=== PATIENT | female | born 1955 | race African-American/Black ===

== ENCOUNTER 2017-08-10 18:41 | Inpatient (IN) ==
[2017-08-10 20:13] LABS: VBG Base Excess 1.9 MEQ/L (0-4); VBG HCO3 25.7 MEQ/L (24-28); VBG PH 7.351; VBG PO2 52.7 MMHG (17-40)
[2017-08-10 20:25] LABS: Basophils # 0.1 10*3/uL (0.0-0.2); Basophils % 0.8 % (0.0-0.8); Eosinophils # 0.3 10*3/uL (0.0-0.87); Eosinophils % 2.7 % (0.00-10.9); Hematocrit 45.3 VOL% (35.7-47.0); Hemoglobin 14.2 GM/DL (12.0-16.0); Immature Granulocytes % 0.4 %; Immature Granulocytes Absolute 0.04 #; Lymphocytes # 3.3 10*3/uL (1.4-4.0); Lymphocytes % 35.3 % (21.3-54.2); Mean Corpuscular HGB Conc 31.3 GM/DL (32-36); Mean Corpuscular Hemoglobin 26 PG (27-34); Mean Corpuscular Volume 83.9 FL (87-102); Mean Platelet Volume 10.1 FL (9.6-12.0); Monocytes # 0.7 10*3/uL (0.11-0.8); Monocytes % 7.3 % (1.7-12.7); Neutrophils # 4.9 10*3/uL (1.4-7.4); Neutrophils % 53.5 % (38.7-73.9); Platelet Count 343 T/CUMM (130-400); Red Cell Distribution Width 16.1 % (9.3-17.3); White Blood Count 9.2 T/CUMM (4-12)
[2017-08-10 20:41] LABS: Alanine Aminotransferase 27 U/L (13-56); Albumin 3.6 G/DL (3.4-5.0); Alkaline Phosphatase 108 U/L (45-117); Aspartate Amino Transferase 33 U/L (0-37); Blood Urea Nitrogen 16 MG/DL (7-18); Calcium 9.7 MG/DL (8.5-10.1); Glucose 114 MG/DL (74-106); Osmolality,Calculated 271.1 MOS/KG (273-304); Potassium 4.9 MMOL/L (3.5-5.1); Sodium 135 MMOL/L (136-145); Total Protein 8.2 G/DL (6.4-8.3); Troponin I Only < 0.015 NG/ML (0.00-0.045)
[2017-08-10] MEDS ORDERED: ALBUTEROL/IPRATROPIUM 3 ML NEB RESP TX STA (21:11)
[2017-08-10] MEDS ORDERED: DILTIAZEM 100 MG VIAL.ADD IV ONE (22:12)
[2017-08-10] MEDS ORDERED: SODIUM CHLORIDE 0.9% 100 ML IV ONE (22:12)
[2017-08-10] MEDS ORDERED: ALBUTEROL/IPRATROPIUM 3 ML NEB RESP TX SCH (22:30)
[2017-08-10] MEDS ORDERED: ENOXAPARIN 100 MG/ML SYRINGE SUBCUT ONE (22:34)
[2017-08-10] MEDS: ENOXAPARIN 100 MG/ML SYRINGE SUBCUT SCH (22:39)
[2017-08-11] MEDS: PREGABALIN 100 MG CAPSULE PO SCH ×5 (00:57→21:41)
[2017-08-11] MEDS: ZALEPLON 5 MG CAPSULE PO SCH ×2 (00:58→21:41)
[2017-08-11] MEDS: CETIRIZINE 10 MG TABLET PO SCH ×2 (00:59→21:41)
[2017-08-11] MEDS: ALBUTEROL/IPRATROPIUM 3 ML NEB RESP TX SCH ×4 (01:53→20:39)
[2017-08-11] MEDS: CARVEDILOL 3.125 MG TABLET PO SCH ×2 (08:33→21:41)
[2017-08-11] MEDS: ASPIRIN EC 81 MG TABLET PO SCH (08:34)
[2017-08-11] MEDS: ESCITALOPRAM 10 MG TABLET PO SCH (08:34)
[2017-08-11] MEDS: DOCUSATE SODIUM 100 MG CAPSULE PO SCH (08:34)
[2017-08-11] MEDS ORDERED: PNEUMOCOCCAL VACCINE (23 VALENT) 0.5 ML VIAL IM ONE (09:00)
[2017-08-11] MEDS ORDERED: LEVOFLOXACIN INJ 750 MG in PREMIX 1 EACH IV SCH (15:00)
[2017-08-11] MEDS: methylPREDNISolone SOD SUC 40 MG/1 ML VIAL IV SCH (15:06)
[2017-08-11] MEDS ORDERED: ZALEPLON 5 MG CAPSULE PO SCH (21:00)
[2017-08-11] MEDS ORDERED: CETIRIZINE 10 MG TABLET PO SCH (21:00)
[2017-08-11] MEDS: ATORVASTATIN 40 MG TABLET PO SCH (21:41)
[2017-08-11] MEDS: ENOXAPARIN 100 MG/ML SYRINGE SUBCUT SCH (21:41)
[2017-08-12] MEDS: ALBUTEROL/IPRATROPIUM 3 ML NEB RESP TX SCH ×3 (00:21→19:16)
[2017-08-12] MEDS: methylPREDNISolone SOD SUC 40 MG/1 ML VIAL IV SCH (03:26)
[2017-08-12 05:16] LABS: Basophils # 0.1 10*3/uL (0.0-0.2); Basophils % 0.5 % (0.0-0.8); Eosinophils % 0.2 % (0.00-10.9); Hematocrit 43.6 VOL% (35.7-47.0); Hemoglobin 13.8 GM/DL (12.0-16.0); Immature Granulocytes % 3.3 %; Immature Granulocytes Absolute 0.37 #; Lymphocytes % 8.7 % (21.3-54.2); Mean Corpuscular HGB Conc 31.7 GM/DL (32-36); Mean Corpuscular Hemoglobin 27 PG (27-34); Mean Corpuscular Volume 84.8 FL (87-102); Mean Platelet Volume 10.2 FL (9.6-12.0); Monocytes # 0.5 10*3/uL (0.11-0.8); Monocytes % 4.3 % (1.7-12.7); NRBC # 0.03 10*3/uL; Neutrophils # 9.3 10*3/uL (1.4-7.4); Platelet Count 277 T/CUMM (130-400); Red Blood Count 5.14 MC/CUMM (3.8-5.5); Red Cell Distribution Width 15.9 % (9.3-17.3); White Blood Count 11.2 T/CUMM (4-12)
[2017-08-12 05:44] LABS: Calcium 8.7 MG/DL (8.5-10.1); Osmolality,Calculated 270.4 MOS/KG (273-304)
[2017-08-12] MEDS ORDERED: SODIUM POLYSTYRENE SULFATE 15 GM/60 ML BOTTLE PO ONE (06:34)
[2017-08-12] MEDS ORDERED: LIDOCAINE 1% 20 ML VIAL MISC INJ ONE (09:00)
[2017-08-12] MEDS: DOCUSATE SODIUM 100 MG CAPSULE PO SCH (09:24)
[2017-08-12] MEDS: CARVEDILOL 3.125 MG TABLET PO SCH ×2 (09:24→21:51)
[2017-08-12] MEDS: ASPIRIN EC 81 MG TABLET PO SCH (09:25)
[2017-08-12] MEDS: LEVOFLOXACIN 500 MG TABLET PO SCH (09:25)
[2017-08-12] MEDS: PREGABALIN 100 MG CAPSULE PO SCH ×3 (09:25→21:51)
[2017-08-12] MEDS: ESCITALOPRAM 10 MG TABLET PO SCH (09:25)
[2017-08-12] MEDS: predniSONE 20 MG TABLET PO SCH (09:25)
[2017-08-12 11:20] LABS: Calcium 8.6 MG/DL (8.5-10.1); Osmolality,Calculated 268.7 MOS/KG (273-304)
[2017-08-12 16:02] LABS: ABG Base Excess 4.4 MMOL/L (-2.5-2.5); ABG HCO3 32.6 MMOL/L (20-26); ABG Oxygen Saturation 93.7 % (95-100); ABG PCO2 65.5 MM HG (35-48); ABG PH 7.315 (7.35-7.45); ABG PO2 69.3 MM HG (80-95); ABG TCO2 34.6 MMOL/L (23-27); Allen Test Positive; Pt O2 Delivery Device Other
[2017-08-12] MEDS ORDERED: ENOXAPARIN 40 MG/0.4 ML SYRINGE SUBCUT SCH (21:00)
[2017-08-12] MEDS: ZALEPLON 5 MG CAPSULE PO SCH (21:51)
[2017-08-12] MEDS: ATORVASTATIN 40 MG TABLET PO SCH (21:51)
[2017-08-12] MEDS: CETIRIZINE 10 MG TABLET PO SCH (21:51)
[2017-08-12] MEDS: ENOXAPARIN 80 MG/0.8 ML SYRINGE SUBCUT SCH (21:51)
[2017-08-13] MEDS: ALBUTEROL/IPRATROPIUM 3 ML NEB RESP TX SCH ×6 (00:18→19:57)
[2017-08-13] MEDS: ESCITALOPRAM 10 MG TABLET PO SCH (09:01)
[2017-08-13] MEDS: FLUCONAZOLE 200 MG TABLET PO SCH (09:01)
[2017-08-13] MEDS: CARVEDILOL 3.125 MG TABLET PO SCH ×2 (09:01→21:32)
[2017-08-13] MEDS: predniSONE 20 MG TABLET PO SCH (09:01)
[2017-08-13] MEDS: LEVOFLOXACIN 500 MG TABLET PO SCH (09:01)
[2017-08-13] MEDS: DOCUSATE SODIUM 100 MG CAPSULE PO SCH (09:01)
[2017-08-13] MEDS: ASPIRIN EC 81 MG TABLET PO SCH (09:02)
[2017-08-13] MEDS: PREGABALIN 100 MG CAPSULE PO SCH ×3 (09:02→21:33)
[2017-08-13] MEDS: ZALEPLON 5 MG CAPSULE PO SCH (21:33)
[2017-08-13] MEDS: CETIRIZINE 10 MG TABLET PO SCH (21:33)
[2017-08-13] MEDS: ENOXAPARIN 80 MG/0.8 ML SYRINGE SUBCUT SCH (21:33)
[2017-08-13] MEDS: ATORVASTATIN 40 MG TABLET PO SCH (21:33)
[2017-08-14] MEDS: ALBUTEROL/IPRATROPIUM 3 ML NEB RESP TX SCH ×4 (01:13→21:02)
[2017-08-14 05:15] LABS: Basophils # 0.1 10*3/uL (0.0-0.2); Basophils % 0.6 % (0.0-0.8); Eosinophils # 0.3 10*3/uL (0.0-0.87); Eosinophils % 3.9 % (0.00-10.9); Hematocrit 42.1 VOL% (35.7-47.0); Hemoglobin 13.5 GM/DL (12.0-16.0); Immature Granulocytes % 0.6 %; Immature Granulocytes Absolute 0.05 #; Lymphocytes # 1.9 10*3/uL (1.4-4.0); Lymphocytes % 21.9 % (21.3-54.2); Mean Corpuscular HGB Conc 32.1 GM/DL (32-36); Mean Corpuscular Hemoglobin 26 PG (27-34); Mean Corpuscular Volume 82.4 FL (87-102); Mean Platelet Volume 10.5 FL (9.6-12.0); Neutrophils # 5.4 10*3/uL (1.4-7.4); Platelet Count 271 T/CUMM (130-400); Red Blood Count 5.11 MC/CUMM (3.8-5.5); Red Cell Distribution Width 15.8 % (9.3-17.3); White Blood Count 8.8 T/CUMM (4-12)
[2017-08-14 05:39] LABS: Calcium 8.8 MG/DL (8.5-10.1); Potassium 4.1 MMOL/L (3.5-5.1)
[2017-08-14] MEDS: ASPIRIN EC 81 MG TABLET PO SCH (09:16)
[2017-08-14] MEDS: PREGABALIN 100 MG CAPSULE PO SCH ×3 (09:16→22:24)
[2017-08-14] MEDS: predniSONE 20 MG TABLET PO SCH (09:16)
[2017-08-14] MEDS: LEVOFLOXACIN 500 MG TABLET PO SCH (09:16)
[2017-08-14] MEDS: DOCUSATE SODIUM 100 MG CAPSULE PO SCH (09:16)
[2017-08-14] MEDS: ESCITALOPRAM 10 MG TABLET PO SCH (09:17)
[2017-08-14] MEDS: FLUCONAZOLE 200 MG TABLET PO SCH (09:17)
[2017-08-14] MEDS: CARVEDILOL 3.125 MG TABLET PO SCH ×2 (09:17→22:25)
[2017-08-14] MEDS: ATORVASTATIN 40 MG TABLET PO SCH (22:24)
[2017-08-14] MEDS: CETIRIZINE 10 MG TABLET PO SCH (22:24)
[2017-08-14] MEDS: ENOXAPARIN 80 MG/0.8 ML SYRINGE SUBCUT SCH (22:25)
[2017-08-14] MEDS: ZALEPLON 5 MG CAPSULE PO SCH (22:45)
[2017-08-15] MEDS: ALBUTEROL/IPRATROPIUM 3 ML NEB RESP TX SCH ×4 (02:11→19:41)
[2017-08-15] MEDS: CARVEDILOL 3.125 MG TABLET PO SCH ×2 (09:13→20:55)
[2017-08-15] MEDS: DOCUSATE SODIUM 100 MG CAPSULE PO SCH (09:13)
[2017-08-15] MEDS: ASPIRIN EC 81 MG TABLET PO SCH (09:13)
[2017-08-15] MEDS: FLUCONAZOLE 200 MG TABLET PO SCH (09:13)
[2017-08-15] MEDS: predniSONE 20 MG TABLET PO SCH (09:13)
[2017-08-15] MEDS: ESCITALOPRAM 10 MG TABLET PO SCH (09:13)
[2017-08-15] MEDS: PREGABALIN 100 MG CAPSULE PO SCH ×3 (09:13→20:51)
[2017-08-15] MEDS: CLARITHROMYCIN 500 MG TABLET PO SCH ×2 (09:13→20:52)
[2017-08-15] MEDS: diphenhydrAMINE CAP 25 MG CAPSULE PO PRN ×2 (13:34→20:51)
[2017-08-15] MEDS: ATORVASTATIN 40 MG TABLET PO SCH (20:51)
[2017-08-15] MEDS: CETIRIZINE 10 MG TABLET PO SCH (20:52)
[2017-08-15] MEDS: ENOXAPARIN 80 MG/0.8 ML SYRINGE SUBCUT SCH (20:55)
[2017-08-15] MEDS: ZALEPLON 5 MG CAPSULE PO SCH (22:16)
[2017-08-16] MEDS: ALBUTEROL/IPRATROPIUM 3 ML NEB RESP TX SCH ×4 (01:18→19:18)
[2017-08-16] MEDS: FLUCONAZOLE 200 MG TABLET PO SCH (09:12)
[2017-08-16] MEDS: ESCITALOPRAM 10 MG TABLET PO SCH (09:12)
[2017-08-16] MEDS: DOCUSATE SODIUM 100 MG CAPSULE PO SCH (09:13)
[2017-08-16] MEDS: CLARITHROMYCIN 500 MG TABLET PO SCH ×2 (09:13→21:48)
[2017-08-16] MEDS: PREGABALIN 100 MG CAPSULE PO SCH ×3 (09:15→21:48)
[2017-08-16] MEDS: diphenhydrAMINE CAP 25 MG CAPSULE PO PRN (09:15)
[2017-08-16] MEDS: ASPIRIN EC 81 MG TABLET PO SCH (09:15)
[2017-08-16] MEDS: CARVEDILOL 3.125 MG TABLET PO SCH ×2 (09:15→21:48)
[2017-08-16] MEDS: predniSONE 20 MG TABLET PO SCH (09:16)
[2017-08-16] MEDS ORDERED: methylPREDNISolone SOD SUC 125 MG/2 ML VIAL IV ONE (10:17)
[2017-08-16] MEDS: HydrOXYzine PAMOATE 50 MG CAPSULE PO PRN ×2 (12:14→22:04)
[2017-08-16] MEDS: ENOXAPARIN 80 MG/0.8 ML SYRINGE SUBCUT SCH (21:48)
[2017-08-16] MEDS: ATORVASTATIN 40 MG TABLET PO SCH (21:48)
[2017-08-16] MEDS: CETIRIZINE 10 MG TABLET PO SCH (21:48)
[2017-08-16] MEDS: ZALEPLON 5 MG CAPSULE PO SCH ×2 (21:48→22:05)
[2017-08-17] MEDS: ALBUTEROL/IPRATROPIUM 3 ML NEB RESP TX SCH ×2 (00:35→06:57)
[2017-08-17] MEDS: FLUCONAZOLE 200 MG TABLET PO SCH (10:27)
[2017-08-17] MEDS: CLARITHROMYCIN 500 MG TABLET PO SCH (10:27)
[2017-08-17] MEDS: DOCUSATE SODIUM 100 MG CAPSULE PO SCH (10:27)
[2017-08-17] MEDS: CARVEDILOL 3.125 MG TABLET PO SCH (10:28)
[2017-08-17] MEDS: predniSONE 20 MG TABLET PO SCH (10:28)
[2017-08-17] MEDS: ESCITALOPRAM 10 MG TABLET PO SCH (10:28)
[2017-08-17] MEDS: ASPIRIN EC 81 MG TABLET PO SCH (10:28)
[2017-08-17] MEDS: PREGABALIN 100 MG CAPSULE PO SCH (10:28)
[2017-08-17 12:20] VITALS: BP 142/64
== END 2017-08-17 12:35 | disposition home health service (06) | DRG 189 ==
LOC: EDUNIT# → EDBD → N.ED 18:41 → N.EDINP 21:38 → SUATTDRO 21:38 → N.TELEN 22:16 → N.CC 08-12 15:15 → N.5E 08-14 12:56
PROVIDERS: ADMIT Internal Medicine; ATTEND Family Medicine

== ENCOUNTER 2020-09-21 19:01 | Inpatient (IN) ==
[2020-09-21 20:09] LABS: Basophils # 0.1 10*3/uL (0.0-0.2); Basophils % 0.5 % (0.0-0.8); Eosinophils # 0.8 10*3/uL (0.0-0.87); Eosinophils % 6.8 % (0.00-10.9); Hematocrit 28.4 VOL% (35.7-47.0); Hemoglobin 8.2 GM/DL (12.0-16.0); Immature Granulocytes % 0.9 %; Immature Granulocytes Absolute 0.11 #; Lymphocytes # 2.7 10*3/uL (1.4-4.0); Lymphocytes % 22.9 % (21.3-54.2); Mean Corpuscular HGB Conc 28.9 GM/DL (32-36); Mean Platelet Volume 9.9 FL (9.6-12.0); Monocytes % 8.9 % (1.7-12.7); NRBC # 0.02 10*3/uL; Platelet Count 416 T/CUMM (130-400); Red Blood Count 3.38 MC/CUMM (3.8-5.5); White Blood Count 11.8 T/CUMM (4-12)
[2020-09-21 20:25] LABS: PT Patient Result 11.5 SECS (9.8-11.9); Partial Thromboplastin Time 24.8 SECS (23.9-33.8)
[2020-09-21 20:38] LABS: Alanine Aminotransferase 12 U/L (13-56); Albumin 3.4 G/DL (3.4-5.0); Alkaline Phosphatase 102 U/L (45-117); Aspartate Amino Transferase 21 U/L (0-37); Bilirubin,Total < 0.39 MG/DL (0.2-1.0); Blood Urea Nitrogen 23 MG/DL (7-18); Calcium 9.5 MG/DL (8.5-10.1); Carbon Dioxide 29 MMOL/L (21-32); Estimated Glom Filtration Rate 56 ML/MIN; Glucose 67 MG/DL (74-106); Osmolality,Calculated 276.7 MOS/KG (273-304); Potassium 4.6 MMOL/L (3.5-5.1); Sodium 138 MMOL/L (136-145); Total Protein 8.4 G/DL (6.4-8.2)
[2020-09-21 20:39] LABS: Troponin I < 0.015 NG/ML (0.00-0.045)
[2020-09-21 21:05] LABS: Anisocytosis 2+; Hypochromasia 1+; Microcytosis 1+; Polychromasia Few
[2020-09-21 21:06] LABS: Platelet Estimate Adequate
[2020-09-21] MEDS ORDERED: ENOXAPARIN 100 MG/ML SYRINGE SUBCUT STA (22:00)
[2020-09-21] MEDS ORDERED: guaiFENesin/DM ER 600-30 MG TABLET PO PRN (23:41)
[2020-09-21] MEDS ORDERED: DOCUSATE SODIUM 100 MG CAPSULE PO PRN (23:41)
[2020-09-21] MEDS ORDERED: ZALEPLON 5 MG CAPSULE PO PRN (23:41)
[2020-09-21] MEDS ORDERED: DEXTROSE 50% 25 GM/50 ML VIAL IV PRN (23:41)
[2020-09-21] MEDS ORDERED: diphenhydrAMINE CAP 25 MG CAPSULE PO PRN (23:41)
[2020-09-21] MEDS ORDERED: GLUCAGON 1 MG VIAL IM PRN (23:41)
[2020-09-21] MEDS ORDERED: hydrALAZINE 20 MG/1 ML VIAL IV PRN (23:41)
[2020-09-21] MEDS ORDERED: MORPHINE 4 MG/1 ML VIAL IV PRN (23:41)
[2020-09-21] MEDS ORDERED: ONDANSETRON 4 MG/2 ML VIAL IV PRN (23:41)
[2020-09-21] MEDS ORDERED: ACETAMINOPHEN 325 MG TABLET PO PRN (23:41)
[2020-09-21] MEDS ORDERED: NICOTINE 21 MG/24 HR PATCH TRANSDERM PRN (23:41)
[2020-09-22] MEDS ORDERED: cefTRIAXone 1,000 MG in SODIUM CHLORIDE 0.9% 100 ML IV SCH
[2020-09-22] MEDS: ALBUTEROL/IPRATROPIUM 3 ML NEB RESP TX SCH ×4 (00:20→19:52)
[2020-09-22] MEDS ORDERED: AZITHROMYCIN INJ 500 MG in SODIUM CHLORIDE 0.9% 250 ML IV SCH (01:00)
[2020-09-22] MEDS ORDERED: ENOXAPARIN 80 MG/0.8 ML SYRINGE SUBCUT ONE (02:00)
[2020-09-22 06:56] LABS: Basophils # 0.1 10*3/uL (0.0-0.2); Basophils % 0.4 % (0.0-0.8); Eosinophils # 0.9 10*3/uL (0.0-0.87); Eosinophils % 7.2 % (0.00-10.9); Hematocrit 24.3 VOL% (35.7-47.0); Immature Granulocytes % 0.5 %; Immature Granulocytes Absolute 0.06 #; Lymphocytes # 2.3 10*3/uL (1.4-4.0); Lymphocytes % 19.5 % (21.3-54.2); Mean Corpuscular HGB Conc 28.8 GM/DL (32-36); Mean Corpuscular Volume 85.3 FL (87-102); Mean Platelet Volume 10.2 FL (9.6-12.0); Monocytes % 8.5 % (1.7-12.7); NRBC # 0.02 10*3/uL; Neutrophils % 63.9 % (38.7-73.9); Platelet Count 328 T/CUMM (130-400); Red Blood Count 2.85 MC/CUMM (3.8-5.5); Red Cell Distribution Width 16.6 % (9.3-17.3); White Blood Count 11.9 T/CUMM (4-12)
[2020-09-22 07:26] LABS: Calcium 8.5 MG/DL (8.5-10.1); Osmolality,Calculated 285.3 MOS/KG (273-304); Potassium 4.2 MMOL/L (3.5-5.1)
[2020-09-22] MEDS: FUROSEMIDE 40 MG/4 ML VIAL IV SCH ×2 (09:49→17:06)
[2020-09-22] MEDS: PANTOPRAZOLE 40 MG TABLET PO SCH (09:50)
[2020-09-22] MEDS ORDERED: HydrOXYzine PAMOATE 50 MG CAPSULE PO PRN (16:52)
[2020-09-22] MEDS: MONTELUKAST 10 MG TABLET PO SCH (17:06)
[2020-09-22] MEDS: ESCITALOPRAM 10 MG TABLET PO SCH (17:06)
[2020-09-22] MEDS: CELECOXIB 200 MG CAPSULE PO SCH (17:06)
[2020-09-22] MEDS ORDERED: ENOXAPARIN 80 MG/0.8 ML SYRINGE SUBCUT SCH (21:00)
[2020-09-22] MEDS ORDERED: ENOXAPARIN 100 MG/ML SYRINGE SUBCUT SCH (21:00)
[2020-09-22] MEDS: ATORVASTATIN 40 MG TABLET PO SCH (22:35)
[2020-09-22] MEDS: PREGABALIN 100 MG CAPSULE PO SCH (22:35)
[2020-09-22] MEDS: MELATONIN 3 MG TABLET PO SCH (22:35)
[2020-09-22] MEDS: carvediloL 3.125 MG TABLET PO SCH (23:00)
[2020-09-23] MEDS: ALBUTEROL/IPRATROPIUM 3 ML NEB RESP TX SCH ×4 (00:11→19:39)
[2020-09-23 06:51] LABS: Basophils % 0.3 % (0.0-0.8); Eosinophils # 0.8 10*3/uL (0.0-0.87); Hematocrit 22.8 VOL% (35.7-47.0); Hemoglobin 6.5 GM/DL (12.0-16.0); Immature Granulocytes % 0.5 %; Immature Granulocytes Absolute 0.07 #; Lymphocytes # 1.7 10*3/uL (1.4-4.0); Lymphocytes % 12.7 % (21.3-54.2); Mean Corpuscular HGB Conc 28.5 GM/DL (32-36); Mean Corpuscular Volume 84.4 FL (87-102); Mean Platelet Volume 9.6 FL (9.6-12.0); Monocytes % 8.4 % (1.7-12.7); Neutrophils % 72.1 % (38.7-73.9); Platelet Count 353 T/CUMM (130-400); Red Cell Distribution Width 16.3 % (9.3-17.3); White Blood Count 13.4 T/CUMM (4-12)
[2020-09-23 07:13] LABS: Calcium 8.6 MG/DL (8.5-10.1); Osmolality,Calculated 281.4 MOS/KG (273-304); Platelet Estimate Normal
[2020-09-23 07:14] LABS: Anisocytosis 1+; Basophilic Stippling Slight; Hypochromasia 1+
[2020-09-23] MEDS: MONTELUKAST 10 MG TABLET PO SCH (09:23)
[2020-09-23] MEDS: FUROSEMIDE 40 MG/4 ML VIAL IV SCH ×2 (09:23→18:15)
[2020-09-23] MEDS: carvediloL 3.125 MG TABLET PO SCH ×2 (09:23→21:38)
[2020-09-23] MEDS: PANTOPRAZOLE 40 MG TABLET PO SCH (09:23)
[2020-09-23] MEDS: PREGABALIN 100 MG CAPSULE PO SCH ×3 (09:23→21:38)
[2020-09-23] MEDS: ESCITALOPRAM 10 MG TABLET PO SCH (09:23)
[2020-09-23] MEDS: ASPIRIN EC 81 MG TABLET PO SCH (09:23)
[2020-09-23] MEDS: CELECOXIB 200 MG CAPSULE PO SCH (09:24)
[2020-09-23] MEDS ORDERED: SODIUM CHLORIDE 0.9% 1,000 ML IV PRN (12:31)
[2020-09-23] MEDS ORDERED: BUTALBITAL/ACETAMIN/CAFFEINE 50-325-40 MG TABLET PO PRN (14:20)
[2020-09-23] MEDS: MELATONIN 3 MG TABLET PO SCH (21:38)
[2020-09-23] MEDS: ATORVASTATIN 40 MG TABLET PO SCH (21:38)
[2020-09-24] MEDS: ALBUTEROL/IPRATROPIUM 3 ML NEB RESP TX SCH ×4 (01:26→19:55)
[2020-09-24] MEDS: CELECOXIB 200 MG CAPSULE PO SCH (10:23)
[2020-09-24] MEDS: ASPIRIN EC 81 MG TABLET PO SCH (10:23)
[2020-09-24] MEDS: ESCITALOPRAM 10 MG TABLET PO SCH (10:24)
[2020-09-24] MEDS: PANTOPRAZOLE 40 MG TABLET PO SCH (10:24)
[2020-09-24] MEDS: PREGABALIN 100 MG CAPSULE PO SCH ×3 (10:24→21:01)
[2020-09-24] MEDS: MONTELUKAST 10 MG TABLET PO SCH (10:24)
[2020-09-24] MEDS: carvediloL 3.125 MG TABLET PO SCH ×2 (10:24→21:01)
[2020-09-24] MEDS: FUROSEMIDE 40 MG/4 ML VIAL IV SCH ×2 (10:25→16:46)
[2020-09-24 11:12] LABS: Basophils % 0.4 % (0.0-0.8); Eosinophils # 0.9 10*3/uL (0.0-0.87); Eosinophils % 7.7 % (0.00-10.9); Hemoglobin 7.8 GM/DL (12.0-16.0); Immature Granulocytes % 0.6 %; Immature Granulocytes Absolute 0.07 #; Lymphocytes # 1.7 10*3/uL (1.4-4.0); Lymphocytes % 15.5 % (21.3-54.2); Mean Corpuscular HGB Conc 28.9 GM/DL (32-36); Mean Corpuscular Volume 84.6 FL (87-102); Mean Platelet Volume 9.7 FL (9.6-12.0); Monocytes % 9.9 % (1.7-12.7); Neutrophils % 65.9 % (38.7-73.9); Platelet Count 366 T/CUMM (130-400); Red Blood Count 3.19 MC/CUMM (3.8-5.5); Red Cell Distribution Width 15.9 % (9.3-17.3); White Blood Count 11.1 T/CUMM (4-12)
[2020-09-24] MEDS: MELATONIN 3 MG TABLET PO SCH (21:01)
[2020-09-24] MEDS: ATORVASTATIN 40 MG TABLET PO SCH (21:01)
[2020-09-25] MEDS: ALBUTEROL/IPRATROPIUM 3 ML NEB RESP TX SCH ×5 (00:50→22:48)
[2020-09-25 08:42] LABS: Basophils % 0.3 % (0.0-0.8); Eosinophils # 0.5 10*3/uL (0.0-0.87); Eosinophils % 4.3 % (0.00-10.9); Hematocrit 29.3 VOL% (35.7-47.0); Immature Granulocytes % 0.8 %; Lymphocytes # 1.7 10*3/uL (1.4-4.0); Lymphocytes % 13.8 % (21.3-54.2); Mean Corpuscular Volume 84.9 FL (87-102); Mean Platelet Volume 9.6 FL (9.6-12.0); Monocytes % 8.4 % (1.7-12.7); Neutrophils % 72.4 % (38.7-73.9); Platelet Count 410 T/CUMM (130-400); Red Blood Count 3.45 MC/CUMM (3.8-5.5); Red Cell Distribution Width 15.9 % (9.3-17.3); White Blood Count 12.2 T/CUMM (4-12)
[2020-09-25 08:43] LABS: Hemoglobin 8.5 GM/DL (12.0-16.0)
[2020-09-25] MEDS: ASPIRIN EC 81 MG TABLET PO SCH (09:20)
[2020-09-25] MEDS: PANTOPRAZOLE 40 MG TABLET PO SCH (09:20)
[2020-09-25] MEDS: FUROSEMIDE 40 MG/4 ML VIAL IV SCH ×2 (09:20→18:37)
[2020-09-25] MEDS: carvediloL 3.125 MG TABLET PO SCH ×2 (09:20→22:52)
[2020-09-25] MEDS: ESCITALOPRAM 10 MG TABLET PO SCH (09:21)
[2020-09-25] MEDS: PREGABALIN 100 MG CAPSULE PO SCH ×3 (09:22→22:52)
[2020-09-25] MEDS: CELECOXIB 200 MG CAPSULE PO SCH (09:22)
[2020-09-25] MEDS: MONTELUKAST 10 MG TABLET PO SCH (09:23)
[2020-09-25] MEDS ORDERED: KETOROLAC 30 MG/1 ML VIAL IV ONE (09:49)
[2020-09-25] MEDS: CLORAZEPATE 3.75 MG TABLET PO PRN (18:10)
[2020-09-25 19:57] LABS: ABG Base Excess 3.2 MMOL/L (-2.5-2.5); ABG HCO3 27.3 MMOL/L (20-26); ABG Oxygen Saturation 99.4 % (95-100); ABG TCO2 34.3 MMOL/L (23-27)
[2020-09-25 19:59] LABS: ABG PH 7.125 (7.35-7.45)
[2020-09-25 20:34] LABS: Calcium 9.1 MG/DL (8.5-10.1); Osmolality,Calculated 280.8 MOS/KG (273-304); Potassium 4.4 MMOL/L (3.5-5.1)
[2020-09-25 20:41] LABS: ABG Oxygen Saturation 99.3 % (95-100); ABG PH 7.364 (7.35-7.45); ABG TCO2 29.3 MMOL/L (23-27)
[2020-09-25] MEDS ORDERED: NOREPINEPHRINE 4 MG/4 ML VIAL IV ONE (20:48)
[2020-09-25] MEDS ORDERED: NOREPINEPHRINE 8 MG in SODIUM CHLORIDE 0.9% 242 ML IV PRN (21:28)
[2020-09-25] MEDS ORDERED: SODIUM CHLORIDE 0.9% 500 ML IV ONE (21:28)
[2020-09-25] MEDS: ATORVASTATIN 40 MG TABLET PO SCH (22:52)
[2020-09-25] MEDS: MELATONIN 3 MG TABLET PO SCH (22:53)
[2020-09-26] MEDS: ALBUTEROL/IPRATROPIUM 3 ML NEB RESP TX SCH ×4 (00:49→19:39)
[2020-09-26] MEDS: SODIUM CHLORIDE 0.9% 1,000 ML IV SCH ×3 (03:45→22:58)
[2020-09-26 03:53] LABS: ABG Base Excess 4.7 MMOL/L (-2.5-2.5); ABG HCO3 28.7 MMOL/L (20-26); ABG Oxygen Saturation 99.8 % (95-100); ABG PCO2 52.2 MM HG (35-48); ABG PH 7.378 (7.35-7.45); ABG TCO2 28.6 MMOL/L (23-27); Allen Test Positive; Pt O2 Delivery Device Ventilator
[2020-09-26 07:36] LABS: Basophils # 0.1 10*3/uL (0.0-0.2); Basophils % 0.5 % (0.0-0.8); Eosinophils # 0.5 10*3/uL (0.0-0.87); Eosinophils % 4.6 % (0.00-10.9); Hematocrit 26.2 VOL% (35.7-47.0); Hemoglobin 7.7 GM/DL (12.0-16.0); Immature Granulocytes % 0.7 %; Immature Granulocytes Absolute 0.07 #; Lymphocytes # 1.5 10*3/uL (1.4-4.0); Lymphocytes % 13.9 % (21.3-54.2); Mean Corpuscular HGB Conc 29.4 GM/DL (32-36); Mean Corpuscular Volume 82.1 FL (87-102); Mean Platelet Volume 9.5 FL (9.6-12.0); Monocytes % 8.3 % (1.7-12.7); Platelet Count 382 T/CUMM (130-400); Red Blood Count 3.19 MC/CUMM (3.8-5.5); Red Cell Distribution Width 15.7 % (9.3-17.3); White Blood Count 10.4 T/CUMM (4-12)
[2020-09-26 08:02] LABS: Calcium 8.7 MG/DL (8.5-10.1); Potassium 4.2 MMOL/L (3.5-5.1)
[2020-09-26] MEDS: FUROSEMIDE 40 MG/4 ML VIAL IV SCH ×2 (08:45→16:34)
[2020-09-26] MEDS: PREGABALIN 100 MG CAPSULE PO SCH ×3 (09:40→21:50)
[2020-09-26] MEDS: ASPIRIN CHEW 81 MG TABLET PO SCH (09:41)
[2020-09-26] MEDS: carvediloL 3.125 MG TABLET PO SCH ×2 (09:41→21:49)
[2020-09-26] MEDS: MONTELUKAST 10 MG TABLET PO SCH (09:41)
[2020-09-26] MEDS: CELECOXIB 200 MG CAPSULE PO SCH (09:41)
[2020-09-26] MEDS: ESCITALOPRAM 10 MG TABLET PO SCH (09:41)
[2020-09-26] MEDS: PANTOPRAZOLE 40 MG VIAL IV SCH (09:41)
[2020-09-26] MEDS: ATORVASTATIN 40 MG TABLET PO SCH (21:49)
[2020-09-26] MEDS: MELATONIN 3 MG TABLET PO SCH (21:50)
[2020-09-27] MEDS: ALBUTEROL/IPRATROPIUM 3 ML NEB RESP TX SCH ×4 (00:04→19:28)
[2020-09-27 04:56] LABS: Calcium 8.7 MG/DL (8.5-10.1); Osmolality,Calculated 278.5 MOS/KG (273-304); Potassium 3.9 MMOL/L (3.5-5.1)
[2020-09-27 05:06] LABS: Basophils % 0.5 % (0.0-0.8); Eosinophils # 1.2 10*3/uL (0.0-0.87); Eosinophils % 14.9 % (0.00-10.9); Hematocrit 27.6 VOL% (35.7-47.0); Hemoglobin 7.8 GM/DL (12.0-16.0); Immature Granulocytes % 0.4 %; Immature Granulocytes Absolute 0.03 #; Lymphocytes # 1.7 10*3/uL (1.4-4.0); Lymphocytes % 20.3 % (21.3-54.2); Mean Corpuscular HGB Conc 28.3 GM/DL (32-36); Mean Corpuscular Volume 84.4 FL (87-102); Mean Platelet Volume 9.9 FL (9.6-12.0); Monocytes % 10.3 % (1.7-12.7); Neutrophils % 53.6 % (38.7-73.9); Platelet Count 358 T/CUMM (130-400); Red Blood Count 3.27 MC/CUMM (3.8-5.5); Red Cell Distribution Width 15.9 % (9.3-17.3); White Blood Count 8.2 T/CUMM (4-12)
[2020-09-27 05:19] LABS: Eosinophils 18 % (0-10); Lymphocytes 24 % (20-55); Segmented Neutrophils 45 % (50-85); Total Cells Counted 100
[2020-09-27 05:28] LABS: Anisocytosis 2+; Hypochromasia 2+; Macrocytosis 1+; Microcytosis 1+; Platelet Estimate Normal
[2020-09-27] MEDS: SODIUM CHLORIDE 0.9% 1,000 ML IV SCH ×3 (07:01→22:42)
[2020-09-27] MEDS: FUROSEMIDE 40 MG/4 ML VIAL IV SCH ×2 (08:59→16:21)
[2020-09-27] MEDS: ASPIRIN CHEW 81 MG TABLET PO SCH (09:07)
[2020-09-27] MEDS: CELECOXIB 200 MG CAPSULE PO SCH (09:07)
[2020-09-27] MEDS: MONTELUKAST 10 MG TABLET PO SCH (09:08)
[2020-09-27] MEDS: PREGABALIN 100 MG CAPSULE PO SCH ×3 (09:08→20:11)
[2020-09-27] MEDS: ESCITALOPRAM 10 MG TABLET PO SCH (09:08)
[2020-09-27] MEDS: PANTOPRAZOLE 40 MG VIAL IV SCH (09:08)
[2020-09-27] MEDS: carvediloL 3.125 MG TABLET PO SCH ×2 (09:08→20:13)
[2020-09-27] MEDS: MELATONIN 3 MG TABLET PO SCH (20:11)
[2020-09-27] MEDS: ATORVASTATIN 40 MG TABLET PO SCH (20:12)
[2020-09-28] MEDS: ALBUTEROL/IPRATROPIUM 3 ML NEB RESP TX SCH ×4 (00:57→19:50)
[2020-09-28] MEDS: SODIUM CHLORIDE 0.9% 1,000 ML IV SCH (06:00)
[2020-09-28] MEDS: CELECOXIB 200 MG CAPSULE PO SCH (08:34)
[2020-09-28] MEDS: ASPIRIN CHEW 81 MG TABLET PO SCH (08:34)
[2020-09-28] MEDS: PREGABALIN 100 MG CAPSULE PO SCH ×3 (08:34→21:01)
[2020-09-28] MEDS: carvediloL 3.125 MG TABLET PO SCH ×2 (08:35→21:01)
[2020-09-28] MEDS: ESCITALOPRAM 10 MG TABLET PO SCH (08:35)
[2020-09-28] MEDS: MONTELUKAST 10 MG TABLET PO SCH (08:35)
[2020-09-28] MEDS: PANTOPRAZOLE 40 MG VIAL IV SCH (08:38)
[2020-09-28] MEDS: FUROSEMIDE 40 MG/4 ML VIAL IV SCH ×2 (08:39→16:25)
[2020-09-28] MEDS: ATORVASTATIN 40 MG TABLET PO SCH (21:01)
[2020-09-28] MEDS: MELATONIN 3 MG TABLET PO SCH (21:02)
[2020-09-29] MEDS: ALBUTEROL/IPRATROPIUM 3 ML NEB RESP TX SCH ×4 (01:55→17:50)
[2020-09-29] MEDS: CLORAZEPATE 3.75 MG TABLET PO PRN (02:28)
[2020-09-29 03:34] LABS: Basophils % 0.4 % (0.0-0.8); Eosinophils # 1.4 10*3/uL (0.0-0.87); Hematocrit 25.6 VOL% (35.7-47.0); Hemoglobin 7.3 GM/DL (12.0-16.0); Immature Granulocytes % 0.4 %; Immature Granulocytes Absolute 0.04 #; Lymphocytes # 1.9 10*3/uL (1.4-4.0); Lymphocytes % 20.7 % (21.3-54.2); Mean Corpuscular HGB Conc 28.5 GM/DL (32-36); Mean Corpuscular Volume 84.5 FL (87-102); Monocytes % 9.5 % (1.7-12.7); Platelet Count 336 T/CUMM (130-400); Red Blood Count 3.03 MC/CUMM (3.8-5.5); Red Cell Distribution Width 15.9 % (9.3-17.3); White Blood Count 9.1 T/CUMM (4-12)
[2020-09-29 03:49] LABS: Calcium 8.4 MG/DL (8.5-10.1); Osmolality,Calculated 277.5 MOS/KG (273-304); Potassium 3.8 MMOL/L (3.5-5.1)
[2020-09-29 04:04] LABS: Eosinophils 12 % (0-10); Lymphocytes 17 % (20-55); Nucleated Red Blood Cells 1 (0-5); Platelet Estimate Adequate; Segmented Neutrophils 55 % (50-85); Total Cells Counted 100
[2020-09-29 04:08] LABS: Hypochromasia 1+; Microcytosis 1+
[2020-09-29] MEDS ORDERED: PREGABALIN 100 MG CAPSULE PO ONE (04:53)
[2020-09-29] MEDS: ESCITALOPRAM 10 MG TABLET PO SCH (09:16)
[2020-09-29] MEDS: ASPIRIN CHEW 81 MG TABLET PO SCH (09:16)
[2020-09-29] MEDS: CELECOXIB 200 MG CAPSULE PO SCH (09:16)
[2020-09-29] MEDS: carvediloL 3.125 MG TABLET PO SCH ×2 (09:16→21:26)
[2020-09-29] MEDS: FUROSEMIDE 40 MG/4 ML VIAL IV SCH ×2 (09:16→15:41)
[2020-09-29] MEDS: PREGABALIN 100 MG CAPSULE PO SCH ×3 (09:16→21:26)
[2020-09-29] MEDS: MONTELUKAST 10 MG TABLET PO SCH (09:16)
[2020-09-29] MEDS: PANTOPRAZOLE 40 MG VIAL IV SCH (09:18)
[2020-09-29] MEDS ORDERED: MAGNESIUM OXIDE 400 MG TABLET PO ONE (11:40)
[2020-09-29] MEDS: ATORVASTATIN 40 MG TABLET PO SCH (21:26)
[2020-09-29] MEDS: MELATONIN 3 MG TABLET PO SCH (21:27)
[2020-09-29] MEDS: MORPHINE 4 MG/1 ML VIAL IV PRN (21:27)
[2020-09-29] MEDS ORDERED: HydrOXYzine PAMOATE 25 MG CAPSULE PO PRN (22:00)
[2020-09-30] MEDS: ALBUTEROL/IPRATROPIUM 3 ML NEB RESP TX SCH ×3 (00:41→13:19)
[2020-09-30] MEDS: MONTELUKAST 10 MG TABLET PO SCH (10:16)
[2020-09-30] MEDS: carvediloL 3.125 MG TABLET PO SCH (10:16)
[2020-09-30] MEDS: CELECOXIB 200 MG CAPSULE PO SCH (10:16)
[2020-09-30] MEDS: PREGABALIN 100 MG CAPSULE PO SCH ×2 (10:17→15:33)
[2020-09-30] MEDS: ASPIRIN CHEW 81 MG TABLET PO SCH (10:17)
[2020-09-30] MEDS: ESCITALOPRAM 10 MG TABLET PO SCH (10:17)
[2020-09-30] MEDS: PANTOPRAZOLE 40 MG VIAL IV SCH (10:20)
[2020-09-30] MEDS: FUROSEMIDE 40 MG/4 ML VIAL IV SCH (10:21)
[2020-09-30 12:14] VITALS: BP 129/54
[2020-09-30] MEDS: MORPHINE 4 MG/1 ML VIAL IV PRN (12:33)
== END 2020-09-30 15:34 | disposition home health service (06) | DRG 208 ==
LOC: EDBD → EDUNIT# → N.ED 19:01 → N.EDINP 23:41 → SUATTDRO 23:41 → N.TELES 09-22 01:53 → N.ICU 09-25 19:15
PROVIDERS: ADMIT Internal Medicine Geriatric Medicine; ATTEND Internal Medicine

== ENCOUNTER 2020-09-30 21:53 | Inpatient (IN) ==
[2020-09-30 23:16] LABS: Basophils # 0.1 10*3/uL (0.0-0.2); Basophils % 0.4 % (0.0-0.8); Eosinophils # 1.5 10*3/uL (0.0-0.87); Eosinophils % 10.9 % (0.00-10.9); Hematocrit 29.1 VOL% (35.7-47.0); Hemoglobin 8.4 GM/DL (12.0-16.0); Immature Granulocytes % 0.9 %; Immature Granulocytes Absolute 0.12 #; Lymphocytes # 2.2 10*3/uL (1.4-4.0); Lymphocytes % 15.5 % (21.3-54.2); Mean Corpuscular HGB Conc 28.9 GM/DL (32-36); Mean Corpuscular Volume 81.3 FL (87-102); Mean Platelet Volume 9.7 FL (9.6-12.0); Monocytes % 7.5 % (1.7-12.7); Neutrophils % 64.8 % (38.7-73.9); Platelet Count 407 T/CUMM (130-400); Red Blood Count 3.58 MC/CUMM (3.8-5.5); Red Cell Distribution Width 15.8 % (9.3-17.3); White Blood Count 13.9 T/CUMM (4-12)
[2020-09-30 23:45] LABS: Albumin 2.9 G/DL (3.4-5.0); Calcium 9.3 MG/DL (8.5-10.1); Osmolality,Calculated 275.8 MOS/KG (273-304); Potassium 3.9 MMOL/L (3.5-5.1); Total Protein 8.2 G/DL (6.4-8.2)
[2020-10-01] MEDS ORDERED: ACETAMINOPHEN 325 MG TABLET PO PRN (00:36)
[2020-10-01] MEDS ORDERED: DEXTROSE 50% 25 GM/50 ML VIAL IV PRN (00:36)
[2020-10-01] MEDS ORDERED: GLUCAGON 1 MG VIAL IM PRN (00:36)
[2020-10-01] MEDS ORDERED: ONDANSETRON 4 MG/2 ML VIAL IV PRN (00:36)
[2020-10-01] MEDS ORDERED: ALBUTEROL/IPRATROPIUM 3 ML NEB RESP TX ONE (00:45)
[2020-10-01] MEDS: ALBUTEROL/IPRATROPIUM 3 ML NEB RESP TX SCH ×4 (00:56→19:35)
[2020-10-01] MEDS: ENOXAPARIN 40 MG/0.4 ML SYRINGE SUBCUT SCH (01:36)
[2020-10-01] MEDS ORDERED: LEVOFLOXACIN INJ 750 MG/150 ML PREMIX IV SCH (02:00)
[2020-10-01 02:10] LABS: Anisocytosis 2+; Hypochromasia 3+; Macrocytosis 1+; Microcytosis 1+; Polychromasia 1+
[2020-10-01 02:11] LABS: Platelet Estimate Adequate
[2020-10-01] MEDS ORDERED: HydrOXYzine PAMOATE 25 MG CAPSULE PO PRN (02:26)
[2020-10-01] MEDS: PIPERACILLIN/TAZOBACTAM 3,375 MG in SODIUM CHLORIDE 0.9% 100 ML IV SCH ×3 (02:33→17:34)
[2020-10-01 06:42] LABS: Basophils % 0.3 % (0.0-0.8); Eosinophils % 9.9 % (0.00-10.9); Hematocrit 25.1 VOL% (35.7-47.0); Hemoglobin 7.5 GM/DL (12.0-16.0); Immature Granulocytes % 0.5 %; Immature Granulocytes Absolute 0.05 #; Lymphocytes % 19.3 % (21.3-54.2); Mean Corpuscular HGB Conc 29.9 GM/DL (32-36); Mean Corpuscular Volume 79.9 FL (87-102); Mean Platelet Volume 9.6 FL (9.6-12.0); Platelet Count 327 T/CUMM (130-400); Red Blood Count 3.14 MC/CUMM (3.8-5.5); Red Cell Distribution Width 15.7 % (9.3-17.3); White Blood Count 10.1 T/CUMM (4-12)
[2020-10-01 06:59] LABS: Calcium 8.9 MG/DL (8.5-10.1); Osmolality,Calculated 275.7 MOS/KG (273-304); Potassium 3.6 MMOL/L (3.5-5.1)
[2020-10-01] MEDS: INSULIN LISPRO 100 UNIT/ML SUBCUT SCH ×4 (08:15→22:55)
[2020-10-01] MEDS: ASPIRIN EC 81 MG TABLET PO SCH (09:00)
[2020-10-01] MEDS: MONTELUKAST 10 MG TABLET PO SCH (09:00)
[2020-10-01] MEDS: CELECOXIB 200 MG CAPSULE PO SCH (09:00)
[2020-10-01] MEDS: carvediloL 3.125 MG TABLET PO SCH ×2 (09:00→21:06)
[2020-10-01] MEDS: glipiZIDE 10 MG TABLET PO SCH (09:00)
[2020-10-01] MEDS: FUROSEMIDE 40 MG TABLET PO SCH ×2 (09:00→17:34)
[2020-10-01] MEDS: PREGABALIN 100 MG CAPSULE PO SCH ×3 (09:00→21:05)
[2020-10-01] MEDS: ESCITALOPRAM 10 MG TABLET PO SCH (09:00)
[2020-10-01] MEDS: DOXYCYCLINE HYCLATE INJ 100 MG in SODIUM CHLORIDE 0.9% 100 ML IV SCH (12:26)
[2020-10-01] MEDS: MELATONIN 3 MG TABLET PO SCH (21:05)
[2020-10-01] MEDS: ATORVASTATIN 40 MG TABLET PO SCH (21:06)
[2020-10-01] MEDS: DOCUSATE SODIUM 100 MG CAPSULE PO PRN (21:13)
[2020-10-02] MEDS: ALBUTEROL/IPRATROPIUM 3 ML NEB RESP TX SCH ×4 (00:17→20:03)
[2020-10-02] MEDS: ENOXAPARIN 40 MG/0.4 ML SYRINGE SUBCUT SCH (03:29)
[2020-10-02] MEDS: DOXYCYCLINE HYCLATE INJ 100 MG in SODIUM CHLORIDE 0.9% 100 ML IV SCH ×3 (06:11→20:51)
[2020-10-02] MEDS: PIPERACILLIN/TAZOBACTAM 3,375 MG in SODIUM CHLORIDE 0.9% 100 ML IV SCH ×2 (06:12→10:39)
[2020-10-02] MEDS: INSULIN LISPRO 100 UNIT/ML SUBCUT SCH ×4 (09:24→20:44)
[2020-10-02] MEDS: glipiZIDE 10 MG TABLET PO SCH (09:39)
[2020-10-02] MEDS: FUROSEMIDE 40 MG TABLET PO SCH ×2 (09:39→16:52)
[2020-10-02] MEDS: MONTELUKAST 10 MG TABLET PO SCH (09:39)
[2020-10-02] MEDS: ASPIRIN EC 81 MG TABLET PO SCH (09:39)
[2020-10-02] MEDS: PREGABALIN 100 MG CAPSULE PO SCH ×3 (09:39→20:50)
[2020-10-02] MEDS: ESCITALOPRAM 10 MG TABLET PO SCH (09:39)
[2020-10-02] MEDS: CELECOXIB 200 MG CAPSULE PO SCH (09:39)
[2020-10-02] MEDS: carvediloL 3.125 MG TABLET PO SCH ×2 (09:39→20:50)
[2020-10-02] MEDS ORDERED: POLYETHYLENE GLYCOL POWDER 17 GM PACK PO ONE (14:38)
[2020-10-02] MEDS: MORPHINE 4 MG/1 ML VIAL IV PRN (16:49)
[2020-10-02] MEDS: DOCUSATE SODIUM 100 MG CAPSULE PO PRN ×2 (18:06→18:30)
[2020-10-02] MEDS: POLYETHYLENE GLYCOL POWDER 17 GM PACK PO SCH (18:31)
[2020-10-02] MEDS: HydrOXYzine PAMOATE 50 MG CAPSULE PO PRN (18:31)
[2020-10-02] MEDS: MELATONIN 3 MG TABLET PO SCH (20:50)
[2020-10-02] MEDS: ATORVASTATIN 40 MG TABLET PO SCH (20:50)
[2020-10-03] MEDS: ENOXAPARIN 40 MG/0.4 ML SYRINGE SUBCUT SCH (00:14)
[2020-10-03] MEDS: ALBUTEROL/IPRATROPIUM 3 ML NEB RESP TX SCH ×4 (00:31→20:33)
[2020-10-03] MEDS: MORPHINE 4 MG/1 ML VIAL IV PRN ×2 (00:33→09:46)
[2020-10-03] MEDS: INSULIN LISPRO 100 UNIT/ML SUBCUT SCH ×4 (09:00→23:52)
[2020-10-03] MEDS: POLYETHYLENE GLYCOL POWDER 17 GM PACK PO SCH (09:42)
[2020-10-03] MEDS: MONTELUKAST 10 MG TABLET PO SCH (09:42)
[2020-10-03] MEDS: glipiZIDE 10 MG TABLET PO SCH (09:42)
[2020-10-03] MEDS: CELECOXIB 200 MG CAPSULE PO SCH (09:42)
[2020-10-03] MEDS: ASPIRIN EC 81 MG TABLET PO SCH (09:42)
[2020-10-03] MEDS: ESCITALOPRAM 10 MG TABLET PO SCH (09:42)
[2020-10-03] MEDS: carvediloL 3.125 MG TABLET PO SCH ×2 (09:42→21:07)
[2020-10-03] MEDS: FUROSEMIDE 40 MG TABLET PO SCH ×2 (09:43→16:29)
[2020-10-03] MEDS: DOXYCYCLINE HYCLATE INJ 100 MG in SODIUM CHLORIDE 0.9% 100 ML IV SCH (09:47)
[2020-10-03] MEDS: PREGABALIN 100 MG CAPSULE PO SCH ×3 (09:48→21:06)
[2020-10-03] MEDS ORDERED: CEFEPIME 2,000 MG in SODIUM CHLORIDE 0.9% 100 ML IV SCH (12:00)
[2020-10-03] MEDS: CEFEPIME 1,000 MG in SODIUM CHLORIDE 0.9% 100 ML IV SCH ×2 (13:11→18:23)
[2020-10-03] MEDS: HydrOXYzine PAMOATE 50 MG CAPSULE PO PRN (14:54)
[2020-10-03] MEDS: ZINC OXIDE PASTE 113 GM TUBE TOP SCH ×2 (18:23→21:08)
[2020-10-03] MEDS: ATORVASTATIN 40 MG TABLET PO SCH (21:07)
[2020-10-03] MEDS: MELATONIN 3 MG TABLET PO SCH (21:07)
[2020-10-04] MEDS: ENOXAPARIN 40 MG/0.4 ML SYRINGE SUBCUT SCH
[2020-10-04] MEDS: ALBUTEROL/IPRATROPIUM 3 ML NEB RESP TX SCH ×4 (00:30→20:08)
[2020-10-04] MEDS: HydrOXYzine PAMOATE 50 MG CAPSULE PO PRN (02:50)
[2020-10-04] MEDS: MORPHINE 4 MG/1 ML VIAL IV PRN ×2 (03:03→22:02)
[2020-10-04] MEDS: CEFEPIME 1,000 MG in SODIUM CHLORIDE 0.9% 100 ML IV SCH ×4 (06:14→21:43)
[2020-10-04] MEDS: INSULIN LISPRO 100 UNIT/ML SUBCUT SCH ×3 (07:22→17:10)
[2020-10-04] MEDS: CELECOXIB 200 MG CAPSULE PO SCH (08:55)
[2020-10-04] MEDS: ESCITALOPRAM 10 MG TABLET PO SCH (08:55)
[2020-10-04] MEDS: MONTELUKAST 10 MG TABLET PO SCH (08:55)
[2020-10-04] MEDS: PREGABALIN 100 MG CAPSULE PO SCH ×3 (08:55→21:42)
[2020-10-04] MEDS: glipiZIDE 10 MG TABLET PO SCH (08:55)
[2020-10-04] MEDS: POLYETHYLENE GLYCOL POWDER 17 GM PACK PO SCH (08:55)
[2020-10-04] MEDS: FUROSEMIDE 40 MG TABLET PO SCH ×2 (08:55→15:33)
[2020-10-04] MEDS: carvediloL 3.125 MG TABLET PO SCH ×2 (08:56→21:42)
[2020-10-04] MEDS: ASPIRIN EC 81 MG TABLET PO SCH (08:56)
[2020-10-04] MEDS: ZINC OXIDE PASTE 113 GM TUBE TOP SCH ×2 (08:56→21:45)
[2020-10-04] MEDS: MELATONIN 3 MG TABLET PO SCH (21:42)
[2020-10-04] MEDS: ATORVASTATIN 40 MG TABLET PO SCH (21:46)
[2020-10-05] MEDS: INSULIN LISPRO 100 UNIT/ML SUBCUT SCH ×5 (00:46→20:13)
[2020-10-05] MEDS: ALBUTEROL/IPRATROPIUM 3 ML NEB RESP TX SCH ×4 (01:35→19:13)
[2020-10-05] MEDS: CEFEPIME 1,000 MG in SODIUM CHLORIDE 0.9% 100 ML IV SCH ×3 (03:32→14:47)
[2020-10-05] MEDS: MONTELUKAST 10 MG TABLET PO SCH (08:48)
[2020-10-05] MEDS: FUROSEMIDE 40 MG TABLET PO SCH ×2 (08:48→16:13)
[2020-10-05] MEDS: carvediloL 3.125 MG TABLET PO SCH ×2 (08:48→20:16)
[2020-10-05] MEDS: PREGABALIN 100 MG CAPSULE PO SCH ×3 (08:48→20:15)
[2020-10-05] MEDS: ASPIRIN EC 81 MG TABLET PO SCH (08:48)
[2020-10-05] MEDS: CELECOXIB 200 MG CAPSULE PO SCH (08:48)
[2020-10-05] MEDS: glipiZIDE 10 MG TABLET PO SCH (08:48)
[2020-10-05] MEDS: ESCITALOPRAM 10 MG TABLET PO SCH (08:48)
[2020-10-05] MEDS: ZINC OXIDE PASTE 113 GM TUBE TOP SCH ×2 (08:49→20:18)
[2020-10-05] MEDS: MORPHINE 4 MG/1 ML VIAL IV PRN ×2 (09:11→20:24)
[2020-10-05] MEDS: POLYETHYLENE GLYCOL POWDER 17 GM PACK PO SCH (09:12)
[2020-10-05] MEDS: ENOXAPARIN 40 MG/0.4 ML SYRINGE SUBCUT SCH (09:45)
[2020-10-05] MEDS: ATORVASTATIN 40 MG TABLET PO SCH (20:15)
[2020-10-05] MEDS: MELATONIN 3 MG TABLET PO SCH (20:15)
[2020-10-06] MEDS: ALBUTEROL/IPRATROPIUM 3 ML NEB RESP TX SCH ×2 (00:17→07:30)
[2020-10-06] MEDS: INSULIN LISPRO 100 UNIT/ML SUBCUT SCH ×2 (08:58→11:43)
[2020-10-06] MEDS ORDERED: LEVOFLOXACIN 500 MG TABLET PO SCH (09:00)
[2020-10-06] MEDS: POLYETHYLENE GLYCOL POWDER 17 GM PACK PO SCH (09:55)
[2020-10-06] MEDS: glipiZIDE 10 MG TABLET PO SCH (09:55)
[2020-10-06] MEDS: FUROSEMIDE 40 MG TABLET PO SCH (09:55)
[2020-10-06] MEDS: CELECOXIB 200 MG CAPSULE PO SCH (09:55)
[2020-10-06] MEDS: carvediloL 3.125 MG TABLET PO SCH (09:55)
[2020-10-06] MEDS: ENOXAPARIN 40 MG/0.4 ML SYRINGE SUBCUT SCH (09:55)
[2020-10-06] MEDS: MONTELUKAST 10 MG TABLET PO SCH (09:55)
[2020-10-06] MEDS: ASPIRIN EC 81 MG TABLET PO SCH (09:55)
[2020-10-06] MEDS: ESCITALOPRAM 10 MG TABLET PO SCH (09:56)
[2020-10-06] MEDS: PREGABALIN 100 MG CAPSULE PO SCH ×2 (09:56→14:59)
[2020-10-06] MEDS: ZINC OXIDE PASTE 113 GM TUBE TOP SCH (09:56)
[2020-10-06 11:43] VITALS: BP 94/40
== END 2020-10-06 17:22 | disposition home health service (06) | DRG 205 ==
LOC: EDUNIT# → EDBD → N.EDINP 21:53 → N.ED 21:53 → SUATTDRO 10-01 00:30 → N.EDINP 10-01 02:57 → N.5E 10-01 03:19 → SUATTDRO 10-03 14:24
PROVIDERS: ADMIT Internal Medicine; ATTEND Internal Medicine

== ENCOUNTER 2021-12-04 16:46 | Inpatient (IN) ==
[2021-12-04] MEDS ORDERED: methylPREDNISolone SOD SUC 125 MG/2 ML VIAL IV STA (19:10)
[2021-12-04] MEDS ORDERED: ALBUTEROL/IPRATROPIUM 3 ML NEB RESP TX STA (19:10)
[2021-12-04] MEDS ORDERED: ALBUTEROL/IPRATROPIUM 3 ML NEB RESP TX ONE (19:11)
[2021-12-04 21:07] LABS: Basophils # 0.3 10*3/uL (0.0-0.2); Basophils % 0.5 % (0.0-0.8); Eosinophils # 5.3 10*3/uL (0.0-0.87); Eosinophils % 8.4 % (0.00-10.9); Hematocrit 26.8 VOL% (35.7-47.0); Hemoglobin 7.6 GM/DL (12.0-16.0); Immature Granulocytes % 22.9 %; Immature Granulocytes Absolute 14.55 #; Lymphocytes # 8.8 10*3/uL (1.4-4.0); Lymphocytes % 13.8 % (21.3-54.2); Mean Corpuscular HGB Conc 28.4 GM/DL (32-36); Mean Corpuscular Volume 84.5 FL (87-102); Mean Platelet Volume 10.3 FL (9.6-12.0); Monocytes # 7.1 10*3/uL (0.11-0.8); Monocytes % 11.2 % (1.7-12.7); NRBC # 15.45 10*3/uL; Neutrophils % 43.2 % (38.7-73.9); Platelet Count 431 T/CUMM (130-400); Red Blood Count 3.17 MC/CUMM (3.8-5.5); Red Cell Distribution Width 19.5 % (9.3-17.3)
[2021-12-04 21:23] LABS: Albumin 2.4 G/DL (3.4-5.0); Bilirubin,Total 0.4 MG/DL (0.20-1.00); Calcium 7.9 MG/DL (8.5-10.1); Osmolality,Calculated 287.5 MOS/KG (273-304); Total Protein 7.2 G/DL (6.4-8.2)
[2021-12-04 21:31] LABS: Arterial Base Excess iSTAT 1 MMOL/L (-2.5-2.5); Arterial O2 Saturation iSTAT 98 % (95-100); Arterial PCO2 iSTAT 109 MM HG (35-48); Arterial PO2 iSTAT 143 MM HG (80-95); Arterial Total CO2 iSTAT 36 MMO/L (23-27); Arterial pH iSTAT 7.088 (7.35-7.45)
[2021-12-04 21:33] LABS: Potassium 6.1 MMOL/L (3.5-5.1)
[2021-12-04] MEDS ORDERED: INSULIN REGULAR 10 UNIT, CALCIUM GLUCONATE 1,000 MG in DEXTROSE 10% 250 ML IV ONE (21:47)
[2021-12-04 22:01] LABS: White Blood Count 63.4 T/CUMM (4-12)
[2021-12-04 22:14] LABS: Band Neutrophils 15 % (0-10); Eosinophils 23 % (0-10); Lymphocytes 24 % (20-55); Myelocytes 12 %; Nucleated Red Blood Cells 19 (0-5); Promyelocytes 7 %; Total Cells Counted 100
[2021-12-04 22:16] LABS: Platelet Estimate Increased; Polychromasia 1+
[2021-12-04] MEDS ORDERED: SODIUM CHLORIDE 0.9% 1,000 ML IV SCH (22:30)
[2021-12-04] MEDS ORDERED: ALBUTEROL 2.5 MG/3 ML NEB RESP TX PRN (22:30)
[2021-12-04] MEDS ORDERED: PANTOPRAZOLE 40 MG VIAL IV SCH (22:30)
[2021-12-05] MEDS: ALBUTEROL/IPRATROPIUM 3 ML NEB RESP TX SCH ×4 (01:10→19:30)
[2021-12-05 01:14] LABS: Basophils # 0.1 10*3/uL (0.0-0.2); Basophils % 0.6 % (0.0-0.8); Eosinophils # 0.6 10*3/uL (0.0-0.87); Eosinophils % 2.6 % (0.00-10.9); Hemoglobin 8.5 GM/DL (12.0-16.0); Immature Granulocytes % 2.2 %; Immature Granulocytes Absolute 0.48 #; Lymphocytes # 1.7 10*3/uL (1.4-4.0); Lymphocytes % 8.1 % (21.3-54.2); Mean Corpuscular HGB Conc 28.2 GM/DL (32-36); Mean Corpuscular Volume 79.6 FL (87-102); Mean Platelet Volume 10.2 FL (9.6-12.0); Monocytes # 2.1 10*3/uL (0.11-0.8); Monocytes % 9.6 % (1.7-12.7); NRBC # 0.05 10*3/uL; Neutrophils % 76.9 % (38.7-73.9); Platelet Count 542 T/CUMM (130-400); Red Blood Count 3.78 MC/CUMM (3.8-5.5); Red Cell Distribution Width 19.6 % (9.3-17.3); White Blood Count 21.3 T/CUMM (4-12)
[2021-12-05 01:31] LABS: Hematocrit 30.1 VOL% (35.7-47.0)
[2021-12-05 01:53] LABS: Band Neutrophils 1 % (0-10); Eosinophils 3 % (0-10); Hypochromia 1+; Lymphocytes 9 % (20-55); Platelet Estimate Increased; Polychromasia 1+; Total Cells Counted 100
[2021-12-05] MEDS: CEFEPIME 1,000 MG in SODIUM CHLORIDE 0.9% 100 ML IV SCH ×3 (02:35→17:28)
[2021-12-05 04:17] LABS: Alanine Aminotransferase 21 U/L (13-56); Albumin 2.3 G/DL (3.4-5.0); Alkaline Phosphatase 93 U/L (45-117); Aspartate Amino Transferase 35 U/L (0-37); Bilirubin,Total < 0.39 MG/DL (0.20-1.00); Blood Urea Nitrogen 28 MG/DL (7-18); Calcium 8.5 MG/DL (8.5-10.1); Carbon Dioxide 32 MMOL/L (21-32); Chloride 103 MMOL/L (98-107); Glucose 128 MG/DL (74-106); Osmolality,Calculated 282.7 MOS/KG (273-304); Potassium 5.7 MMOL/L (3.5-5.1); Sodium 138 MMOL/L (136-145); Total Protein 7.1 G/DL (6.4-8.2)
[2021-12-05 04:36] LABS: Basophils # 0.1 10*3/uL (0.0-0.2); Basophils % 0.5 % (0.0-0.8); Eosinophils # 0.2 10*3/uL (0.0-0.87); Eosinophils % 1.4 % (0.00-10.9); Hemoglobin 6.7 GM/DL (12.0-16.0); Immature Granulocytes % 1.1 %; Immature Granulocytes Absolute 0.12 #; Mean Corpuscular Volume 82.1 FL (87-102); Mean Platelet Volume 10.1 FL (9.6-12.0); Monocytes # 0.6 10*3/uL (0.11-0.8); Monocytes % 5.3 % (1.7-12.7); NRBC # 0.03 10*3/uL; Neutrophils % 82.7 % (38.7-73.9); Platelet Count 391 T/CUMM (130-400); Red Blood Count 2.91 MC/CUMM (3.8-5.5); Red Cell Distribution Width 19.1 % (9.3-17.3); White Blood Count 10.9 T/CUMM (4-12)
[2021-12-05 04:41] LABS: Hematocrit 23.9 VOL% (35.7-47.0)
[2021-12-05 04:47] LABS: Arterial Base Excess iSTAT 5 MMOL/L (-2.5-2.5); Arterial Bicarbonate iSTAT 33.6 MMOL/L (20-26); Arterial O2 Saturation iSTAT 54 % (95-100); Arterial PCO2 iSTAT 77 MM HG (35-48); Arterial PO2 iSTAT 35 MM HG (80-95); Arterial Total CO2 iSTAT 36 MMO/L (23-27); Arterial pH iSTAT 7.246 (7.35-7.45)
[2021-12-05 06:21] LABS: Hyaline Casts,Urine 7 /LPF (0-3); Mucus,Urine Occasional /LPF (Occasional); RBC,Urine 154 /HPF (0-4); Squamous Epithelial Cell,Urine Occasional /HPF (0-10)
[2021-12-05 06:22] LABS: Bilirubin,Urine Negative (Negative); Blood, Urine Large mg/dL (Negative); Glucose,Urine (UA) Negative (Negative); Ketones,Urine Negative (Negative); Nitrite,Urine Negative (Negative); Protein,Urine 100 mg/dL (Negative); Urine Appearance Slightly Hazy (Clear); Urine Color Yellow (Yellow); Urine Specific Gravity > 1.030 (1.001-1.035); Urine Urobilinogen 0.2 eU/dL (<2.0); Urine pH 5.5 (4.5-8.0)
[2021-12-05 07:59] LABS: Basophils % 0.2 % (0.0-0.8); Eosinophils # 0.1 10*3/uL (0.0-0.87); Eosinophils % 1.4 % (0.00-10.9); Hematocrit 23.6 VOL% (35.7-47.0); Hemoglobin 6.6 GM/DL (12.0-16.0); Immature Granulocytes Absolute 0.09 #; Lymphocytes # 0.8 10*3/uL (1.4-4.0); Lymphocytes % 9.4 % (21.3-54.2); Mean Corpuscular Volume 81.9 FL (87-102); Mean Platelet Volume 9.7 FL (9.6-12.0); Monocytes # 0.3 10*3/uL (0.11-0.8); Monocytes % 3.4 % (1.7-12.7); NRBC # 0.03 10*3/uL; Neutrophils % 84.6 % (38.7-73.9); Platelet Count 372 T/CUMM (130-400); Red Blood Count 2.88 MC/CUMM (3.8-5.5); Red Cell Distribution Width 19.2 % (9.3-17.3); White Blood Count 8.8 T/CUMM (4-12)
[2021-12-05] MEDS: ENOXAPARIN 40 MG/0.4 ML SYRINGE SUBCUT SCH (08:14)
[2021-12-05] MEDS ORDERED: MORPHINE 2 MG/1 ML SYRINGE IV ONE (11:19)
[2021-12-05] MEDS ORDERED: ACETAMINOPHEN 325 MG/10.15 ML UDCUP PO PRN (15:14)
[2021-12-05 16:33] LABS: Hematocrit 30.8 VOL% (35.7-47.0); Hemoglobin 8.8 GM/DL (12.0-16.0)
[2021-12-05 17:06] LABS: Calcium 8.4 MG/DL (8.5-10.1); Osmolality,Calculated 284.4 MOS/KG (273-304); Potassium 5.6 MMOL/L (3.5-5.1)
[2021-12-05] MEDS ORDERED: METOPROLOL TARTRATE 5 MG/5 ML VIAL IV ONE (18:02)
[2021-12-05] MEDS ORDERED: HydrOXYzine PAMOATE 25 MG CAPSULE PO PRN (18:02)
[2021-12-05] MEDS: PREGABALIN 100 MG CAPSULE PO SCH (20:25)
[2021-12-05] MEDS: carvediloL 3.125 MG TABLET PO SCH (20:25)
[2021-12-05] MEDS: PANTOPRAZOLE 40 MG VIAL IV SCH (20:26)
[2021-12-05] MEDS: MELATONIN 3 MG TABLET PO SCH (20:26)
[2021-12-05] MEDS ORDERED: DEXMEDETOMIDINE 200 MCG in SODIUM CHLORIDE 0.9% 48 ML IV PRN (23:22)
[2021-12-05 23:46] LABS: Arterial Base Excess iSTAT 2 MMOL/L (-2.5-2.5); Arterial Bicarbonate iSTAT 33.5 MMOL/L (20-26); Arterial O2 Saturation iSTAT 78 % (95-100); Arterial PCO2 iSTAT 106 MM HG (35-48); Arterial PO2 iSTAT 61 MM HG (80-95); Arterial Total CO2 iSTAT 37 MMO/L (23-27); Arterial pH iSTAT 7.105 (7.35-7.45)
[2021-12-06] MEDS: ALBUTEROL/IPRATROPIUM 3 ML NEB RESP TX SCH ×4 (00:10→19:23)
[2021-12-06] MEDS: CEFEPIME 1,000 MG in SODIUM CHLORIDE 0.9% 100 ML IV SCH ×3 (02:47→18:30)
[2021-12-06 03:49] LABS: Albumin 2.2 G/DL (3.4-5.0); Bilirubin,Total 0.4 MG/DL (0.20-1.00); Calcium 8.5 MG/DL (8.5-10.1); Osmolality,Calculated 287.3 MOS/KG (273-304); Phosphorous 5.8 MG/DL (2.5-4.9); Potassium 5.9 MMOL/L (3.5-5.1); Total Protein 6.9 G/DL (6.4-8.2)
[2021-12-06] MEDS: DEXMEDETOMIDINE 400 MCG in SODIUM CHLORIDE 0.9% 96 ML IV PRN ×3 (03:56→22:33)
[2021-12-06 04:06] LABS: Basophils % 0.3 % (0.0-0.8); Eosinophils # 1.1 10*3/uL (0.0-0.87); Eosinophils % 10.2 % (0.00-10.9); Hematocrit 27.6 VOL% (35.7-47.0); Hemoglobin 7.9 GM/DL (12.0-16.0); Immature Granulocytes Absolute 0.11 #; Lymphocytes # 0.6 10*3/uL (1.4-4.0); Lymphocytes % 5.6 % (21.3-54.2); Mean Corpuscular HGB Conc 28.6 GM/DL (32-36); Mean Corpuscular Volume 84.1 FL (87-102); Mean Platelet Volume 10.3 FL (9.6-12.0); Monocytes # 0.5 10*3/uL (0.11-0.8); NRBC # 0.05 10*3/uL; Neutrophils % 78.9 % (38.7-73.9); Platelet Count 380 T/CUMM (130-400); Red Blood Count 3.28 MC/CUMM (3.8-5.5); Red Cell Distribution Width 18.8 % (9.3-17.3); White Blood Count 11.1 T/CUMM (4-12)
[2021-12-06] MEDS: FUROSEMIDE 40 MG TABLET PO SCH ×2 (08:45→16:30)
[2021-12-06] MEDS: carvediloL 3.125 MG TABLET PO SCH ×2 (08:45→17:44)
[2021-12-06] MEDS ORDERED: ASPIRIN EC 81 MG TABLET PO SCH (09:00)
[2021-12-06] MEDS: PANTOPRAZOLE 40 MG VIAL IV SCH ×2 (09:25→22:22)
[2021-12-06] MEDS: ENOXAPARIN 40 MG/0.4 ML SYRINGE SUBCUT SCH (09:30)
[2021-12-06] MEDS: PREGABALIN 100 MG CAPSULE PO SCH ×3 (09:30→22:22)
[2021-12-06] MEDS: ESCITALOPRAM 10 MG TABLET PO SCH (09:30)
[2021-12-06] MEDS: MONTELUKAST 10 MG TABLET PO SCH (09:30)
[2021-12-06 12:27] LABS: CKMB % 2.99 %
[2021-12-06] MEDS ORDERED: INSULIN REGULAR 10 UNIT, CALCIUM GLUCONATE 1,000 MG in DEXTROSE 10% 250 ML IV ONE (12:30)
[2021-12-06] MEDS: LINEZOLID INJ 600 MG/300 ML PREMIX IV SCH ×2 (14:00→22:22)
[2021-12-06 18:16] LABS: Arterial Base Excess iSTAT 6 MMOL/L (-2.5-2.5); Arterial Bicarbonate iSTAT 31.6 MMOL/L (20-26); Arterial O2 Saturation iSTAT 97 % (95-100); Arterial PCO2 iSTAT 53 MM HG (35-48); Arterial PO2 iSTAT 94 MM HG (80-95); Arterial Total CO2 iSTAT 33 MMO/L (23-27); Arterial pH iSTAT 7.384 (7.35-7.45)
[2021-12-06] MEDS ORDERED: propofoL 200 MG/20 ML VIAL IV ONE ×3 (19:43→19:51)
[2021-12-06] MEDS: MELATONIN 3 MG TABLET PO SCH (22:22)
[2021-12-07] MEDS: ALBUTEROL/IPRATROPIUM 3 ML NEB RESP TX SCH ×5 (00:08→23:31)
[2021-12-07] MEDS: CEFEPIME 1,000 MG in SODIUM CHLORIDE 0.9% 100 ML IV SCH ×3 (02:56→15:45)
[2021-12-07 04:10] LABS: Hematocrit 25.9 VOL% (35.7-47.0); Hemoglobin 7.5 GM/DL (12.0-16.0)
[2021-12-07 04:26] LABS: Calcium 8.8 MG/DL (8.5-10.1); Osmolality,Calculated 288.3 MOS/KG (273-304); Potassium 4.8 MMOL/L (3.5-5.1)
[2021-12-07 04:36] LABS: Arterial Base Excess iSTAT 4 MMOL/L (-2.5-2.5); Arterial O2 Saturation iSTAT 100 % (95-100); Arterial PCO2 iSTAT 66 MM HG (35-48); Arterial PO2 iSTAT 194 MM HG (80-95); Arterial Total CO2 iSTAT 35 MMO/L (23-27); Arterial pH iSTAT 7.309 (7.35-7.45)
[2021-12-07 04:57] LABS: Phosphorous 4.2 MG/DL (2.5-4.9)
[2021-12-07] MEDS: carvediloL 3.125 MG TABLET PO SCH ×2 (08:50→17:06)
[2021-12-07] MEDS: FUROSEMIDE 40 MG TABLET PO SCH ×2 (08:50→15:45)
[2021-12-07] MEDS: MONTELUKAST 10 MG TABLET PO SCH (08:50)
[2021-12-07] MEDS: ESCITALOPRAM 10 MG TABLET PO SCH (08:50)
[2021-12-07] MEDS: PREGABALIN 100 MG CAPSULE PO SCH ×3 (08:50→21:42)
[2021-12-07] MEDS: ASPIRIN CHEW 81 MG TABLET PO SCH (08:50)
[2021-12-07] MEDS: ENOXAPARIN 40 MG/0.4 ML SYRINGE SUBCUT SCH (09:00)
[2021-12-07] MEDS: PANTOPRAZOLE 40 MG VIAL IV SCH ×2 (09:05→21:43)
[2021-12-07] MEDS: LINEZOLID INJ 600 MG/300 ML PREMIX IV SCH (12:17)
[2021-12-07 16:33] LABS: Arterial Base Excess iSTAT 9 MMOL/L (-2.5-2.5); Arterial Bicarbonate iSTAT 35.8 MMOL/L (20-26); Arterial O2 Saturation iSTAT 100 % (95-100); Arterial PCO2 iSTAT 60 MM HG (35-48); Arterial PO2 iSTAT 215 MM HG (80-95); Arterial Total CO2 iSTAT 38 MMO/L (23-27); Arterial pH iSTAT 7.384 (7.35-7.45)
[2021-12-07] MEDS: MELATONIN 3 MG TABLET PO SCH (21:42)
[2021-12-07] MEDS: MENTHOL/ZINC OXIDE OINT 71 GM JAR TOP SCH (21:43)
[2021-12-08] MEDS: LINEZOLID INJ 600 MG/300 ML PREMIX IV SCH ×3 (00:30→23:27)
[2021-12-08] MEDS: CEFEPIME 1,000 MG in SODIUM CHLORIDE 0.9% 100 ML IV SCH ×3 (04:24→17:13)
[2021-12-08 04:52] LABS: Basophils % 0.3 % (0.0-0.8); Eosinophils # 1.9 10*3/uL (0.0-0.87); Eosinophils % 17.9 % (0.00-10.9); Hematocrit 25.9 VOL% (35.7-47.0); Hemoglobin 7.4 GM/DL (12.0-16.0); Immature Granulocytes % 0.8 %; Immature Granulocytes Absolute 0.08 #; Lymphocytes # 1.1 10*3/uL (1.4-4.0); Lymphocytes % 10.7 % (21.3-54.2); Mean Corpuscular HGB Conc 28.6 GM/DL (32-36); Mean Corpuscular Volume 83.3 FL (87-102); Mean Platelet Volume 10.4 FL (9.6-12.0); Monocytes # 0.9 10*3/uL (0.11-0.8); Monocytes % 8.7 % (1.7-12.7); Neutrophils % 61.6 % (38.7-73.9); Platelet Count 328 T/CUMM (130-400); Red Blood Count 3.11 MC/CUMM (3.8-5.5); Red Cell Distribution Width 20.6 % (9.3-17.3); White Blood Count 10.4 T/CUMM (4-12)
[2021-12-08 05:13] LABS: Osmolality,Calculated 289.1 MOS/KG (273-304); Potassium 4.4 MMOL/L (3.5-5.1)
[2021-12-08 05:16] LABS: Eosinophils 18 % (0-10); Lymphocytes 6 % (20-55); Total Cells Counted 100
[2021-12-08 05:17] LABS: Hypochromia Slight; Platelet Estimate Adequate
[2021-12-08 05:18] LABS: Microcytosis Slight
[2021-12-08] MEDS ORDERED: MORPHINE 2 MG/1 ML SYRINGE IV ONE (05:27)
[2021-12-08] MEDS: ONDANSETRON 4 MG/2 ML VIAL IV PRN (05:46)
[2021-12-08] MEDS: ALBUTEROL/IPRATROPIUM 3 ML NEB RESP TX SCH ×3 (07:35→19:15)
[2021-12-08] MEDS ORDERED: MAGNESIUM SULF RIDER 4 GM/100 ML PREMIX IV PRN (08:17)
[2021-12-08] MEDS ORDERED: MAGNESIUM SULF RIDER 2 GM/50 ML PREMIX IV PRN (08:17)
[2021-12-08 08:45] LABS: Arterial Base Excess iSTAT 9 MMOL/L (-2.5-2.5); Arterial Bicarbonate iSTAT 34.9 MMOL/L (20-26); Arterial O2 Saturation iSTAT 94 % (95-100); Arterial PCO2 iSTAT 55 MM HG (35-48); Arterial PO2 iSTAT 71 MM HG (80-95); Arterial Total CO2 iSTAT 37 MMO/L (23-27); Arterial pH iSTAT 7.407 (7.35-7.45)
[2021-12-08] MEDS: PANTOPRAZOLE 40 MG VIAL IV SCH ×2 (08:45→21:48)
[2021-12-08] MEDS: PREGABALIN 100 MG CAPSULE PO SCH ×3 (08:46→21:48)
[2021-12-08] MEDS: MENTHOL/ZINC OXIDE OINT 71 GM JAR TOP SCH ×2 (08:46→21:48)
[2021-12-08] MEDS: MONTELUKAST 10 MG TABLET PO SCH (08:46)
[2021-12-08] MEDS: carvediloL 3.125 MG TABLET PO SCH ×2 (08:46→16:09)
[2021-12-08] MEDS: FUROSEMIDE 40 MG TABLET PO SCH ×2 (08:46→16:09)
[2021-12-08] MEDS: ESCITALOPRAM 10 MG TABLET PO SCH (08:46)
[2021-12-08] MEDS: ASPIRIN CHEW 81 MG TABLET PO SCH (08:46)
[2021-12-08] MEDS: ENOXAPARIN 40 MG/0.4 ML SYRINGE SUBCUT SCH (08:47)
[2021-12-08] MEDS ORDERED: SODIUM CHLORIDE 0.9% 1,000 ML IV PRN (11:21)
[2021-12-08 18:23] VITALS: BP 132/55
[2021-12-08] MEDS: MELATONIN 3 MG TABLET PO SCH (21:48)
[2021-12-09] MEDS: ALBUTEROL/IPRATROPIUM 3 ML NEB RESP TX SCH ×4 (00:45→19:35)
[2021-12-09] MEDS: CEFEPIME 1,000 MG in SODIUM CHLORIDE 0.9% 100 ML IV SCH ×5 (02:17→23:46)
[2021-12-09 04:27] LABS: Arterial Base Excess iSTAT 9 MMOL/L (-2.5-2.5); Arterial Bicarbonate iSTAT 35.1 MMOL/L (20-26); Arterial O2 Saturation iSTAT 95 % (95-100); Arterial PCO2 iSTAT 59 MM HG (35-48); Arterial PO2 iSTAT 78 MM HG (80-95); Arterial Total CO2 iSTAT 37 MMO/L (23-27); Arterial pH iSTAT 7.383 (7.35-7.45)
[2021-12-09 05:03] LABS: Basophils % 0.3 % (0.0-0.8); Eosinophils # 1.4 10*3/uL (0.0-0.87); Hematocrit 27.6 VOL% (35.7-47.0); Immature Granulocytes % 0.9 %; Immature Granulocytes Absolute 0.08 #; Lymphocytes # 1.2 10*3/uL (1.4-4.0); Lymphocytes % 13.5 % (21.3-54.2); Mean Corpuscular Volume 82.6 FL (87-102); Monocytes # 0.8 10*3/uL (0.11-0.8); Monocytes % 9.2 % (1.7-12.7); NRBC # 0.02 10*3/uL; Neutrophils % 61.1 % (38.7-73.9); Platelet Count 283 T/CUMM (130-400); Red Blood Count 3.34 MC/CUMM (3.8-5.5); Red Cell Distribution Width 20.1 % (9.3-17.3); White Blood Count 9.2 T/CUMM (4-12)
[2021-12-09 05:27] LABS: Albumin 2.2 G/DL (3.4-5.0); Bilirubin,Total 0.4 MG/DL (0.20-1.00); Calcium 9.1 MG/DL (8.5-10.1); Osmolality,Calculated 283.4 MOS/KG (273-304); Potassium 4.3 MMOL/L (3.5-5.1); Total Protein 6.9 G/DL (6.4-8.2)
[2021-12-09 05:31] LABS: Eosinophils 14 % (0-10); Lymphocytes 17 % (20-55); Total Cells Counted 100
[2021-12-09 05:32] LABS: Hypochromia 1+; Microcytosis 1+; Polychromasia 1+
[2021-12-09] MEDS ORDERED: ALPRAZolam 0.5 MG TABLET PO PRN (09:01)
[2021-12-09] MEDS: FUROSEMIDE 40 MG TABLET PO SCH ×2 (09:26→17:26)
[2021-12-09] MEDS: ASPIRIN CHEW 81 MG TABLET PO SCH (09:26)
[2021-12-09] MEDS: carvediloL 3.125 MG TABLET PO SCH ×2 (09:26→17:26)
[2021-12-09] MEDS: PREGABALIN 100 MG CAPSULE PO SCH ×3 (09:27→21:16)
[2021-12-09] MEDS: PANTOPRAZOLE 40 MG VIAL IV SCH ×2 (09:27→21:16)
[2021-12-09] MEDS: ESCITALOPRAM 10 MG TABLET PO SCH (09:27)
[2021-12-09] MEDS: ENOXAPARIN 40 MG/0.4 ML SYRINGE SUBCUT SCH (09:27)
[2021-12-09] MEDS: MENTHOL/ZINC OXIDE OINT 71 GM JAR TOP SCH ×2 (09:27→21:15)
[2021-12-09] MEDS: MONTELUKAST 10 MG TABLET PO SCH (09:27)
[2021-12-09] MEDS: DEXMEDETOMIDINE 400 MCG in SODIUM CHLORIDE 0.9% 96 ML IV PRN ×2 (10:00→18:44)
[2021-12-09] MEDS: LINEZOLID INJ 600 MG/300 ML PREMIX IV SCH ×2 (14:06→22:45)
[2021-12-09] MEDS: MORPHINE 2 MG/1 ML SYRINGE IV PRN (17:50)
[2021-12-09] MEDS: MELATONIN 3 MG TABLET PO SCH (21:16)
[2021-12-09] MEDS: ATORVASTATIN 40 MG TABLET PO SCH (21:16)
[2021-12-10] MEDS: ALBUTEROL/IPRATROPIUM 3 ML NEB RESP TX SCH ×4 (00:05→19:16)
[2021-12-10] MEDS: DEXMEDETOMIDINE 400 MCG in SODIUM CHLORIDE 0.9% 96 ML IV PRN ×2 (01:00→23:41)
[2021-12-10 04:10] LABS: Arterial Base Excess iSTAT 11 MMOL/L (-2.5-2.5); Arterial Bicarbonate iSTAT 37.6 MMOL/L (20-26); Arterial O2 Saturation iSTAT 95 % (95-100); Arterial PCO2 iSTAT 59 MM HG (35-48); Arterial PO2 iSTAT 78 MM HG (80-95); Arterial Total CO2 iSTAT 39 MMO/L (23-27); Arterial pH iSTAT 7.411 (7.35-7.45)
[2021-12-10] MEDS: CEFEPIME 1,000 MG in SODIUM CHLORIDE 0.9% 100 ML IV SCH ×3 (05:41→17:29)
[2021-12-10 06:13] LABS: Basophils % 0.4 % (0.0-0.8); Eosinophils # 1.2 10*3/uL (0.0-0.87); Eosinophils % 11.9 % (0.00-10.9); Hematocrit 27.3 VOL% (35.7-47.0); Immature Granulocytes % 1.1 %; Immature Granulocytes Absolute 0.11 #; Lymphocytes # 1.8 10*3/uL (1.4-4.0); Mean Corpuscular HGB Conc 29.3 GM/DL (32-36); Mean Corpuscular Volume 81.7 FL (87-102); Mean Platelet Volume 10.5 FL (9.6-12.0); Monocytes # 0.8 10*3/uL (0.11-0.8); Monocytes % 8.5 % (1.7-12.7); Neutrophils % 60.1 % (38.7-73.9); Platelet Count 309 T/CUMM (130-400); Red Blood Count 3.34 MC/CUMM (3.8-5.5); Red Cell Distribution Width 20.2 % (9.3-17.3); White Blood Count 9.7 T/CUMM (4-12)
[2021-12-10 06:26] LABS: % Iron Saturation 10.2 % (18-50); Albumin 2.1 G/DL (3.4-5.0); Bilirubin,Total 0.4 MG/DL (0.20-1.00); Calcium 9.3 MG/DL (8.5-10.1); Ferritin 69.3 ng/mL (8-252); Osmolality,Calculated 281.5 MOS/KG (273-304); Potassium 4.3 MMOL/L (3.5-5.1); Risk Ratio 2.07; Total Protein 6.8 G/DL (6.4-8.2); VLDL Cholesterol 19.2 MG/DL
[2021-12-10] MEDS ORDERED: GLUCAGON 1 MG VIAL IM PRN (08:25)
[2021-12-10] MEDS ORDERED: DEXTROSE 10% 250 ML BAG IV PRN (08:28)
[2021-12-10] MEDS ORDERED: POLYETHYLENE GLYCOL POWDER 17 GM PACK PO PRN (08:32)
[2021-12-10 08:43] LABS: Eosinophils 10 % (0-10); Lymphocytes 11 % (20-55); Platelet Estimate Normal; Total Cells Counted 100
[2021-12-10 08:44] LABS: Anisocytosis 2+; Polychromasia Slight
[2021-12-10 08:45] LABS: Ovalocytes Slight
[2021-12-10] MEDS: PANTOPRAZOLE 40 MG VIAL IV SCH (08:48)
[2021-12-10] MEDS: ENOXAPARIN 40 MG/0.4 ML SYRINGE SUBCUT SCH (08:48)
[2021-12-10] MEDS: carvediloL 3.125 MG TABLET PO SCH ×2 (08:48→17:29)
[2021-12-10] MEDS: MONTELUKAST 10 MG TABLET PO SCH (08:49)
[2021-12-10] MEDS: FUROSEMIDE 40 MG TABLET PO SCH (08:49)
[2021-12-10] MEDS: ESCITALOPRAM 10 MG TABLET PO SCH (08:49)
[2021-12-10] MEDS: PREGABALIN 100 MG CAPSULE PO SCH ×3 (08:49→20:02)
[2021-12-10] MEDS: MENTHOL/ZINC OXIDE OINT 71 GM JAR TOP SCH ×2 (08:49→20:02)
[2021-12-10] MEDS: ASPIRIN CHEW 81 MG TABLET PO SCH (08:49)
[2021-12-10] MEDS: FERROUS SULFATE 300 MG/5 ML UDCUP PO SCH ×2 (09:06→20:01)
[2021-12-10] MEDS ORDERED: FUROSEMIDE 40 MG/4 ML VIAL IV ONE (11:00)
[2021-12-10] MEDS ORDERED: FUROSEMIDE 40 MG/4 ML VIAL ONE (11:14)
[2021-12-10] MEDS: INSULIN LISPRO 100 UNIT/ML SUBCUT SCH ×3 (12:11→23:54)
[2021-12-10] MEDS: LINEZOLID INJ 600 MG/300 ML PREMIX IV SCH (12:11)
[2021-12-10] MEDS: FUROSEMIDE 40 MG/4 ML VIAL IV SCH (17:29)
[2021-12-10] MEDS: MELATONIN 3 MG TABLET PO SCH (20:02)
[2021-12-10] MEDS: ATORVASTATIN 40 MG TABLET PO SCH (20:02)
[2021-12-10] MEDS: MORPHINE 2 MG/1 ML SYRINGE IV PRN (20:57)
[2021-12-11] MEDS: LINEZOLID INJ 600 MG/300 ML PREMIX IV SCH ×3 (00:01→23:52)
[2021-12-11] MEDS: CEFEPIME 1,000 MG in SODIUM CHLORIDE 0.9% 100 ML IV SCH ×5 (00:01→23:51)
[2021-12-11 03:54] LABS: Arterial Base Excess iSTAT 11 MMOL/L (-2.5-2.5); Arterial Bicarbonate iSTAT 38.4 MMOL/L (20-26); Arterial O2 Saturation iSTAT 95 % (95-100); Arterial PCO2 iSTAT 64 MM HG (35-48); Arterial PO2 iSTAT 78 MM HG (80-95); Arterial Total CO2 iSTAT 40 MMO/L (23-27); Arterial pH iSTAT 7.383 (7.35-7.45)
[2021-12-11 05:17] LABS: Basophils # 0.1 10*3/uL (0.0-0.2); Basophils % 0.5 % (0.0-0.8); Eosinophils # 1.1 10*3/uL (0.0-0.87); Eosinophils % 10.7 % (0.00-10.9); Hematocrit 30.2 VOL% (35.7-47.0); Hemoglobin 8.5 GM/DL (12.0-16.0); Immature Granulocytes % 1.1 %; Immature Granulocytes Absolute 0.11 #; Lymphocytes # 1.8 10*3/uL (1.4-4.0); Lymphocytes % 17.9 % (21.3-54.2); Mean Corpuscular HGB Conc 28.1 GM/DL (32-36); Mean Corpuscular Volume 84.1 FL (87-102); Mean Platelet Volume 10.2 FL (9.6-12.0); Monocytes % 9.5 % (1.7-12.7); Neutrophils % 60.3 % (38.7-73.9); Platelet Count 281 T/CUMM (130-400); Red Blood Count 3.59 MC/CUMM (3.8-5.5); Red Cell Distribution Width 20.6 % (9.3-17.3); White Blood Count 10.1 T/CUMM (4-12)
[2021-12-11 05:33] LABS: Calcium 9.7 MG/DL (8.5-10.1); Osmolality,Calculated 286.3 MOS/KG (273-304); Potassium 3.9 MMOL/L (3.5-5.1)
[2021-12-11] MEDS: INSULIN LISPRO 100 UNIT/ML SUBCUT SCH ×4 (05:43→23:43)
[2021-12-11 05:46] LABS: Phosphorous 3.4 MG/DL (2.5-4.9)
[2021-12-11] MEDS: MORPHINE 2 MG/1 ML SYRINGE IV PRN (05:50)
[2021-12-11] MEDS: DEXMEDETOMIDINE 400 MCG in SODIUM CHLORIDE 0.9% 96 ML IV PRN ×3 (06:56→21:33)
[2021-12-11] MEDS: ALBUTEROL/IPRATROPIUM 3 ML NEB RESP TX SCH ×4 (07:08→19:32)
[2021-12-11] MEDS: FUROSEMIDE 40 MG/4 ML VIAL IV SCH ×2 (08:38→16:21)
[2021-12-11] MEDS: carvediloL 3.125 MG TABLET PO SCH ×2 (08:38→16:21)
[2021-12-11] MEDS: ASPIRIN CHEW 81 MG TABLET PO SCH (08:39)
[2021-12-11] MEDS: FERROUS SULFATE 300 MG/5 ML UDCUP PO SCH ×2 (08:41→20:28)
[2021-12-11] MEDS: ESCITALOPRAM 10 MG TABLET PO SCH (08:41)
[2021-12-11] MEDS: ENOXAPARIN 40 MG/0.4 ML SYRINGE SUBCUT SCH (08:42)
[2021-12-11] MEDS: MONTELUKAST 10 MG TABLET PO SCH (08:42)
[2021-12-11] MEDS: PANTOPRAZOLE 40 MG VIAL IV SCH ×2 (08:45→20:28)
[2021-12-11] MEDS: PREGABALIN 100 MG CAPSULE PO SCH ×3 (08:45→20:28)
[2021-12-11] MEDS ORDERED: MAGNESIUM SULF RIDER 2 GM/50 ML PREMIX IV ONE (09:07)
[2021-12-11] MEDS: MENTHOL/ZINC OXIDE OINT 71 GM JAR TOP SCH ×2 (09:22→20:28)
[2021-12-11] MEDS: ATORVASTATIN 40 MG TABLET PO SCH (20:28)
[2021-12-11] MEDS: MELATONIN 3 MG TABLET PO SCH (20:28)
[2021-12-12] MEDS: ALBUTEROL/IPRATROPIUM 3 ML NEB RESP TX SCH ×3 (00:22→13:05)
[2021-12-12 04:03] LABS: Arterial Base Excess iSTAT 12 MMOL/L (-2.5-2.5); Arterial Bicarbonate iSTAT 39.4 MMOL/L (20-26); Arterial O2 Saturation iSTAT 93 % (95-100); Arterial PCO2 iSTAT 66 MM HG (35-48); Arterial PO2 iSTAT 71 MM HG (80-95); Arterial Total CO2 iSTAT 41 MMO/L (23-27); Arterial pH iSTAT 7.386 (7.35-7.45)
[2021-12-12 04:54] LABS: Basophils % 0.3 % (0.0-0.8); Eosinophils % 7.9 % (0.00-10.9); Hematocrit 28.4 VOL% (35.7-47.0); Hemoglobin 8.3 GM/DL (12.0-16.0); Immature Granulocytes % 1.1 %; Immature Granulocytes Absolute 0.14 #; Lymphocytes # 2.2 10*3/uL (1.4-4.0); Lymphocytes % 17.7 % (21.3-54.2); Mean Corpuscular HGB Conc 29.2 GM/DL (32-36); Mean Platelet Volume 10.9 FL (9.6-12.0); Monocytes % 7.9 % (1.7-12.7); Neutrophils % 65.1 % (38.7-73.9); Platelet Count 303 T/CUMM (130-400); Red Blood Count 3.42 MC/CUMM (3.8-5.5); Red Cell Distribution Width 20.4 % (9.3-17.3); White Blood Count 12.7 T/CUMM (4-12)
[2021-12-12 05:12] LABS: Albumin 2.2 G/DL (3.4-5.0); Bilirubin,Total 0.4 MG/DL (0.20-1.00); Calcium 9.5 MG/DL (8.5-10.1); Osmolality,Calculated 280.7 MOS/KG (273-304); Phosphorous 3.3 MG/DL (2.5-4.9); Potassium 3.9 MMOL/L (3.5-5.1)
[2021-12-12] MEDS: INSULIN LISPRO 100 UNIT/ML SUBCUT SCH ×2 (05:52→13:17)
[2021-12-12] MEDS: CEFEPIME 1,000 MG in SODIUM CHLORIDE 0.9% 100 ML IV SCH ×3 (05:52→17:42)
[2021-12-12] MEDS: DEXMEDETOMIDINE 400 MCG in SODIUM CHLORIDE 0.9% 96 ML IV PRN ×2 (06:30→13:54)
[2021-12-12] MEDS: MORPHINE 2 MG/1 ML SYRINGE IV PRN (06:41)
[2021-12-12] MEDS ORDERED: MAGNESIUM SULF RIDER 4 GM/100 ML PREMIX IV ONE (07:55)
[2021-12-12] MEDS: FUROSEMIDE 40 MG/4 ML VIAL IV SCH ×2 (08:13→15:22)
[2021-12-12] MEDS: carvediloL 3.125 MG TABLET PO SCH ×2 (08:13→17:41)
[2021-12-12] MEDS: ASPIRIN CHEW 81 MG TABLET PO SCH (08:14)
[2021-12-12] MEDS: FERROUS SULFATE 300 MG/5 ML UDCUP PO SCH (08:14)
[2021-12-12] MEDS: PREGABALIN 100 MG CAPSULE PO SCH ×2 (08:14→15:22)
[2021-12-12] MEDS: ESCITALOPRAM 10 MG TABLET PO SCH (08:14)
[2021-12-12] MEDS: MONTELUKAST 10 MG TABLET PO SCH (08:15)
[2021-12-12] MEDS: ENOXAPARIN 40 MG/0.4 ML SYRINGE SUBCUT SCH (08:15)
[2021-12-12] MEDS: PANTOPRAZOLE 40 MG VIAL IV SCH (08:15)
[2021-12-12] MEDS: MENTHOL/ZINC OXIDE OINT 71 GM JAR TOP SCH (08:30)
[2021-12-12] MEDS: ONDANSETRON 4 MG/2 ML VIAL IV PRN (08:32)
[2021-12-12] MEDS ORDERED: MAGNESIUM OXIDE 400 MG TABLET PO SCH (09:00)
[2021-12-12] MEDS: LINEZOLID INJ 600 MG/300 ML PREMIX IV SCH (11:23)
== END 2021-12-12 17:11 | disposition hospice, home (50) | DRG 207 ==
LOC: EDUNIT# → EDBD → N.ED 16:46 → SUATTDRO 21:49 → N.EDINP 21:49 → N.CC 12-05 00:17
PROVIDERS: ADMIT Family Medicine; ATTEND Internal Medicine

== ENCOUNTER 2021-12-18 07:44 | Inpatient (IN) ==
[2021-12-18] MEDS ORDERED: ALBUTEROL 2.5 MG/3 ML NEB RESP TX PRN (17:01)
[2021-12-18] MEDS ORDERED: ONDANSETRON 4 MG/2 ML VIAL IV PRN (17:02)
[2021-12-18] MEDS ORDERED: HYDROmorphone 1 MG/1 ML SYRINGE IV ONE (17:05)
[2021-12-18] MEDS ORDERED: HYDROmorphone 1 MG/1 ML SYRINGE IV PRN (17:25)
[2021-12-18] MEDS: ALBUTEROL/IPRATROPIUM 3 ML NEB RESP TX SCH (19:12)
[2021-12-18] MEDS ORDERED: ATORVASTATIN 40 MG TABLET PO SCH (21:00)
[2021-12-18] MEDS ORDERED: ENOXAPARIN 40 MG/0.4 ML SYRINGE SUBCUT SCH ×2 (21:00)
[2021-12-18] MEDS: MORPHINE 2 MG/1 ML SYRINGE IV PRN (21:23)
[2021-12-18] MEDS: carvediloL 3.125 MG TABLET PO SCH (21:52)
[2021-12-18] MEDS: FERROUS SULFATE 300 MG/5 ML UDCUP PO SCH (21:52)
[2021-12-18] MEDS: PREGABALIN 100 MG CAPSULE PO SCH (21:52)
[2021-12-18] MEDS: FAMOTIDINE 20 MG TABLET PO SCH (21:53)
[2021-12-19] MEDS: MORPHINE 2 MG/1 ML SYRINGE IV PRN ×3 (00:34→14:54)
[2021-12-19] MEDS: ALBUTEROL/IPRATROPIUM 3 ML NEB RESP TX SCH ×3 (01:10→12:07)
[2021-12-19 03:44] LABS: Basophils # 0.1 10*3/uL (0.0-0.2); Basophils % 0.7 % (0.0-0.8); Eosinophils # 0.5 10*3/uL (0.0-0.87); Eosinophils % 4.9 % (0.00-10.9); Hematocrit 28.5 VOL% (35.7-47.0); Hemoglobin 8.3 GM/DL (12.0-16.0); Immature Granulocytes % 0.6 %; Immature Granulocytes Absolute 0.06 #; Lymphocytes # 1.8 10*3/uL (1.4-4.0); Lymphocytes % 16.7 % (21.3-54.2); Mean Corpuscular HGB Conc 29.1 GM/DL (32-36); Mean Corpuscular Volume 81.9 FL (87-102); Mean Platelet Volume 11.1 FL (9.6-12.0); Monocytes % 8.9 % (1.7-12.7); Neutrophils % 68.2 % (38.7-73.9); Platelet Count 382 T/CUMM (130-400); Red Blood Count 3.48 MC/CUMM (3.8-5.5); Red Cell Distribution Width 21.2 % (9.3-17.3); White Blood Count 10.8 T/CUMM (4-12)
[2021-12-19 04:03] LABS: Albumin 2.1 G/DL (3.4-5.0); Bilirubin,Total 0.4 MG/DL (0.20-1.00); Calcium 8.7 MG/DL (8.5-10.1); Osmolality,Calculated 275.5 MOS/KG (273-304); Potassium 3.7 MMOL/L (3.5-5.1); Total Protein 6.6 G/DL (6.4-8.2)
[2021-12-19] MEDS: FUROSEMIDE 20 MG/2 ML VIAL IV SCH ×2 (08:16→15:00)
[2021-12-19] MEDS ORDERED: ASPIRIN EC 81 MG TABLET PO SCH (09:00)
[2021-12-19] MEDS ORDERED: ESCITALOPRAM 10 MG TABLET PO SCH (09:00)
[2021-12-19] MEDS ORDERED: LINEZOLID INJ 600 MG/300 ML PREMIX IV SCH (09:00)
[2021-12-19 09:04] LABS: Arterial Base Excess iSTAT 10 MMOL/L (-2.5-2.5); Arterial Bicarbonate iSTAT 35.1 MMOL/L (20-26); Arterial O2 Saturation iSTAT 96 % (95-100); Arterial PCO2 iSTAT 48 MM HG (35-48); Arterial PO2 iSTAT 76 MM HG (80-95); Arterial Total CO2 iSTAT 36 MMO/L (23-27); Arterial pH iSTAT 7.476 (7.35-7.45)
[2021-12-19] MEDS ORDERED: MAGNESIUM SULF RIDER 2 GM/50 ML PREMIX IV PRN (09:21)
[2021-12-19] MEDS ORDERED: ASPIRIN CHEW 81 MG TABLET PO SCH (11:10)
[2021-12-19] MEDS: carvediloL 3.125 MG TABLET PO SCH (11:35)
[2021-12-19] MEDS: FAMOTIDINE 20 MG TABLET PO SCH (11:36)
[2021-12-19] MEDS: FERROUS SULFATE 300 MG/5 ML UDCUP PO SCH (11:36)
[2021-12-19] MEDS: PREGABALIN 100 MG CAPSULE PO SCH ×2 (11:36→14:55)
[2021-12-19 17:00] VITALS: BP 142/74
== END 2021-12-19 17:55 | DRG 208 ==
LOC: N.CC 16:53
PROVIDERS: ADMIT Family Medicine; ATTEND Family Medicine

== ENCOUNTER 2022-01-21 11:00 | Observation (INO) ==
[2022-01-21] MEDS ORDERED: ALBUTEROL/IPRATROPIUM 3 ML NEB RESP TX STA (11:27)
[2022-01-21] MEDS ORDERED: methylPREDNISolone SOD SUC 125 MG/2 ML VIAL IV STA (11:27)
[2022-01-21 11:55] LABS: Basophils # 0.1 10*3/uL (0.0-0.2); Basophils % 0.4 % (0.0-0.8); Eosinophils # 0.8 10*3/uL (0.0-0.87); Eosinophils % 4.8 % (0.00-10.9); Hematocrit 31.5 VOL% (35.7-47.0); Immature Granulocytes % 0.5 %; Immature Granulocytes Absolute 0.09 #; Lymphocytes # 2.6 10*3/uL (1.4-4.0); Lymphocytes % 15.7 % (21.3-54.2); Mean Corpuscular HGB Conc 28.6 GM/DL (32-36); Mean Corpuscular Volume 87.3 FL (87-102); Mean Platelet Volume 10.1 FL (9.6-12.0); Monocytes % 5.7 % (1.7-12.7); Neutrophils % 72.9 % (38.7-73.9); Platelet Count 374 T/CUMM (130-400); Red Blood Count 3.61 MC/CUMM (3.8-5.5); Red Cell Distribution Width 19.6 % (9.3-17.3); White Blood Count 16.6 T/CUMM (4-12)
[2022-01-21 12:01] LABS: Alanine Aminotransferase 23 U/L (13-56); Albumin 2.9 G/DL (3.4-5.0); Alkaline Phosphatase 97 U/L (45-117); Aspartate Amino Transferase 25 U/L (0-37); Bilirubin,Total < 0.39 MG/DL (0.20-1.00); Blood Urea Nitrogen 19 MG/DL (7-18); Calcium 9.3 MG/DL (8.5-10.1); Carbon Dioxide 30 MMOL/L (21-32); Chloride 106 MMOL/L (98-107); Glucose 146 MG/DL (74-106); Osmolality,Calculated 283.4 MOS/KG (273-304); Potassium 4.6 MMOL/L (3.5-5.1); Sodium 140 MMOL/L (136-145); Total Protein 6.8 G/DL (6.4-8.2)
[2022-01-21 12:07] LABS: Anisocytosis 1+; Platelet Estimate Normal
[2022-01-21] MEDS ORDERED: LEVOFLOXACIN INJ 750 MG/150 ML PREMIX IV STA (12:07)
[2022-01-21 12:08] LABS: Hypochromia Slight
[2022-01-21] MEDS ORDERED: FUROSEMIDE 40 MG/4 ML VIAL IV STA (12:08)
[2022-01-21] MEDS ORDERED: ALBUTEROL 2.5 MG/3 ML NEB RESP TX PRN (13:08)
[2022-01-21] MEDS ORDERED: hydrALAZINE 20 MG/1 ML VIAL IV PRN (13:11)
[2022-01-21] MEDS ORDERED: CALCIUM CARBONATE CHEW 500 MG TABLET PO PRN (13:12)
[2022-01-21] MEDS ORDERED: GLUCAGON 1 MG VIAL IM PRN (13:12)
[2022-01-21] MEDS ORDERED: DEXTROSE 50% 25 GM/50 ML VIAL IV PRN (13:12)
[2022-01-21] MEDS ORDERED: ALUMINUM/MAGNES/SIMETH MAX STR 30 ML UDCUP PO PRN (13:12)
[2022-01-21] MEDS ORDERED: SIMETHICONE CHEW 125 MG TABLET PO PRN (13:12)
[2022-01-21] MEDS ORDERED: carvediloL 3.125 MG TABLET PO STA (13:12)
[2022-01-21] MEDS ORDERED: ACETAMINOPHEN 325 MG TABLET PO PRN (13:12)
[2022-01-21] MEDS ORDERED: ONDANSETRON 4 MG/2 ML VIAL IV PRN (13:12)
[2022-01-21] MEDS ORDERED: DEXTROSE 10% 250 ML BAG IV PRN (13:32)
[2022-01-21] MEDS ORDERED: MONTELUKAST 10 MG TABLET PO PRN (13:55)
[2022-01-21] MEDS: ENOXAPARIN 40 MG/0.4 ML SYRINGE SUBCUT SCH (16:20)
[2022-01-21] MEDS: SODIUM CHLORIDE 0.9% 1,000 ML IV SCH (16:26)
[2022-01-21] MEDS: INSULIN LISPRO 100 UNIT/ML SUBCUT SCH ×2 (17:52→21:39)
[2022-01-21] MEDS: carvediloL 3.125 MG TABLET PO SCH (18:32)
[2022-01-21] MEDS: ALBUTEROL/IPRATROPIUM 3 ML NEB RESP TX SCH (19:08)
[2022-01-21] MEDS: methylPREDNISolone SOD SUC 40 MG/1 ML VIAL IV SCH (21:38)
[2022-01-21] MEDS: PREGABALIN 100 MG CAPSULE PO SCH (21:39)
[2022-01-21] MEDS: ATORVASTATIN 40 MG TABLET PO SCH (21:50)
[2022-01-21] MEDS: FERROUS SULFATE 300 MG/5 ML UDCUP PO SCH (21:50)
[2022-01-21] MEDS: MELATONIN 3 MG TABLET PO SCH ×2 (21:51→22:39)
[2022-01-22] MEDS: ALBUTEROL/IPRATROPIUM 3 ML NEB RESP TX SCH ×4 (00:16→19:50)
[2022-01-22 05:05] LABS: Basophils % 0.1 % (0.0-0.8); Hematocrit 29.3 VOL% (35.7-47.0); Hemoglobin 8.6 GM/DL (12.0-16.0); Immature Granulocytes % 0.7 %; Immature Granulocytes Absolute 0.06 #; Lymphocytes % 11.3 % (21.3-54.2); Mean Corpuscular HGB Conc 29.4 GM/DL (32-36); Mean Platelet Volume 11.3 FL (9.6-12.0); Monocytes # 0.1 10*3/uL (0.11-0.8); Monocytes % 1.4 % (1.7-12.7); Neutrophils % 86.5 % (38.7-73.9); Platelet Count 377 T/CUMM (130-400); Red Blood Count 3.49 MC/CUMM (3.8-5.5); Red Cell Distribution Width 19.3 % (9.3-17.3); White Blood Count 9.2 T/CUMM (4-12)
[2022-01-22 05:31] LABS: Calcium 8.9 MG/DL (8.5-10.1); Osmolality,Calculated 283.5 MOS/KG (273-304); Potassium 4.7 MMOL/L (3.5-5.1)
[2022-01-22] MEDS: methylPREDNISolone SOD SUC 40 MG/1 ML VIAL IV SCH ×3 (05:42→23:09)
[2022-01-22] MEDS: SODIUM CHLORIDE 0.9% 1,000 ML IV SCH (05:43)
[2022-01-22] MEDS ORDERED: ESCITALOPRAM 10 MG TABLET PO SCH (09:00)
[2022-01-22] MEDS ORDERED: MONTELUKAST 10 MG TABLET PO SCH (09:00)
[2022-01-22] MEDS: FERROUS SULFATE 300 MG/5 ML UDCUP PO SCH ×2 (09:29→23:09)
[2022-01-22] MEDS: PREGABALIN 100 MG CAPSULE PO SCH ×2 (09:29→23:07)
[2022-01-22] MEDS: INSULIN LISPRO 100 UNIT/ML SUBCUT SCH ×4 (09:29→23:06)
[2022-01-22] MEDS: PANTOPRAZOLE 40 MG TABLET PO SCH (09:29)
[2022-01-22] MEDS: ASPIRIN CHEW 81 MG TABLET PO SCH (09:29)
[2022-01-22] MEDS: LINEZOLID 600 MG TABLET PO SCH ×2 (09:29→23:07)
[2022-01-22] MEDS: LEVOFLOXACIN INJ 750 MG/150 ML PREMIX IV SCH (09:30)
[2022-01-22] MEDS: carvediloL 3.125 MG TABLET PO SCH ×2 (09:30→16:55)
[2022-01-22] MEDS: ENOXAPARIN 40 MG/0.4 ML SYRINGE SUBCUT SCH (23:06)
[2022-01-22] MEDS: ATORVASTATIN 40 MG TABLET PO SCH (23:08)
[2022-01-22] MEDS: MELATONIN 3 MG TABLET PO SCH (23:10)
[2022-01-23] MEDS: ALBUTEROL/IPRATROPIUM 3 ML NEB RESP TX SCH ×2 (00:50→07:19)
[2022-01-23] MEDS: methylPREDNISolone SOD SUC 40 MG/1 ML VIAL IV SCH (05:27)
[2022-01-23 05:54] LABS: Basophils % 0.3 % (0.0-0.8); Eosinophils % 0.1 % (0.00-10.9); Hematocrit 25.9 VOL% (35.7-47.0); Hemoglobin 7.7 GM/DL (12.0-16.0); Immature Granulocytes % 0.7 %; Immature Granulocytes Absolute 0.07 #; Lymphocytes # 1.3 10*3/uL (1.4-4.0); Lymphocytes % 12.4 % (21.3-54.2); Mean Corpuscular HGB Conc 29.7 GM/DL (32-36); Mean Corpuscular Volume 83.5 FL (87-102); Mean Platelet Volume 11.2 FL (9.6-12.0); Monocytes # 0.8 10*3/uL (0.11-0.8); NRBC # 0.02 10*3/uL; Neutrophils % 79.5 % (38.7-73.9); Platelet Count 385 T/CUMM (130-400); Red Cell Distribution Width 19.5 % (9.3-17.3); White Blood Count 10.8 T/CUMM (4-12)
[2022-01-23 06:04] LABS: Calcium 8.9 MG/DL (8.5-10.1); Osmolality,Calculated 282.5 MOS/KG (273-304); Potassium 4.6 MMOL/L (3.5-5.1)
[2022-01-23] MEDS: INSULIN LISPRO 100 UNIT/ML SUBCUT SCH ×2 (07:46→12:47)
[2022-01-23] MEDS: LEVOFLOXACIN INJ 750 MG/150 ML PREMIX IV SCH (08:34)
[2022-01-23] MEDS: PREGABALIN 100 MG CAPSULE PO SCH (08:34)
[2022-01-23] MEDS: ASPIRIN CHEW 81 MG TABLET PO SCH (08:34)
[2022-01-23] MEDS: PANTOPRAZOLE 40 MG TABLET PO SCH (08:34)
[2022-01-23] MEDS: LINEZOLID 600 MG TABLET PO SCH (08:34)
[2022-01-23] MEDS: carvediloL 3.125 MG TABLET PO SCH (08:34)
[2022-01-23] MEDS ORDERED: FERROUS SULFATE 325 MG TABLET PO SCH (10:00)
[2022-01-23] MEDS: FERROUS SULFATE 300 MG/5 ML UDCUP PO SCH (10:06)
[2022-01-23 11:46] VITALS: BP 146/52
[2022-01-24] MEDS ORDERED: LEVOFLOXACIN 750 MG TABLET PO SCH (09:00)
== END 2022-01-23 12:46 | disposition home health service (06) ==
LOC: N.EDINP 11:00 → N.ED 11:00 → SUATTDRO 13:06 → N.5E 13:44
PROVIDERS: ADMIT Internal Medicine; ATTEND Internal Medicine